=== PATIENT | male | born 1950 | race Caucasian/White ===

== ENCOUNTER 2022-02-01 05:24 | Inpatient (IN) ==
--- NOTE | 2022-02-01 06:07 | Emergency Department Note ---
Impression & Plan Sepsis, Abdominal pain, acute, right upper quadrant, Hypomagnesemia Admit to the [facility] ED Provider Note NAME: ИРИНА DUEÑAS AGE: 71 SEX: M ARRIVES VIA: Ambulance INFORMANT: Patient ED PROVIDER(S): Keshia Reid DO CHIEF COMPLAINT: Shaking and sweating PLAN: Disposition: Admit to the [facility] Condition: Stable MEDICAL DECISION MAKING: The patient presents to the emergency department with significant shaking and sweating. The patient had a recent admission to an outside hospital for sepsis after being diagnosed with gallstone pancreatitis. The patient is concerned that he may be septic again. The patient does meet SIRS criteria with an elevated heart rate and white blood cell count. The source is not yet confirmed. The patient did have urinary incontinence but urinalysis does not appear to be infected. Right upper quadrant ultrasound is pending. Chest x-ray is unremarkable. Triage Nursing notes reviewed and agree with them. Prior medical records reviewed from [facility] Vital Signs: reviewed and unremarkable Differential diagnosis: Sepsis, gallstone pancreatitis, UTI ER treatment provided: IV normal saline bolus IV Zosyn IV magnesium Diagnostics interpreted by me: ECG: sinus tachycardia at a rate of [address] segment elevation or signs of ischemia. There is no ectopy. Cardiac Monitoring: Normal sinus rhythm at a rate of 98 Laboratory studies: See below Imaging studies: As per my interpretation Chest x-ray: No acute pulmonary infiltrates or consolidation HPI: 71/M arrives for evaluation of diaphoresis and shaking. The patient developed right upper quadrant abdominal pain, diaphoresis and shaking around 230 this afternoon. He then drank a bottle of water and then had significant frequent urination. The patient was brought to the emergency department by EMS. In route to the hospital, the patient had an episode of urinary incontinence and significant diaphoresis. The abdominal pain in the right upper quadrant persists. ROS: See above HPI for pertinent positives & negatives. A total of 10 systems reviewed and were otherwise negative. PAST MEDICAL HISTORY:Gallstone pancreatitis for which she was hospitalized in November; he had a subsequent episode of sepsis for which she was hospitalized in late December PAST SURGICAL HISTORY:See Below FAMILY HISTORY:See Below SOCIAL HISTORY:The patient is visiting his camp from [place]. He denies any tobacco abuse. HOME MEDICATIONS:See list ALLERGIES:None VITALS:See Below PHYSICAL EXAMINATION: HEENT: Head - normocephalic and atraumatic. Pupils are equal, round, and reactive to light. Extraocular eye muscles are intact, and sclera are anicteric. Nose - moist nasal mucosa without discharge. Mouth - moist buccal mucosa. Oropharynx is nonerythematous and there is no tonsillar exudate or edema noted. Neck: Supple; no JVD or nuchal rigidity Heart: Regular rate and rhythm. There is a normal S1 and S2 with no murmurs, clicks, or gallops appreciated. Lungs: Clear to auscultation bilaterally with no wheezes, rales, or rhonchi. Abdomen: Soft, mild tenderness to palpation in the right upper quadrant, nondistended, with good bowel sounds. There are no palpable pulsatile masses or hepatosplenomegaly. There is no guarding, rigidity, or rebound noted. Extremities: No evidence of cyanosis, clubbing, or edema. There are easily palpable peripheral pulses. Skin: Extremely diaphoretic, pale with good turgor and no rashes. ED COURSE: Times/Reassessments: 0540: The patient was evaluated in room C4. He had a complete septic work-up performed. A twelve-lead EKG was obtained. An order was placed for continuous cardiac monitoring. The patient was in a normal sinus rhythm at a rate of 98. Patient had a chest x-ray performed. He was noted to be hypomagnesemic and was given IV magnesium replacement. The patient was given IV normal saline. A Covid swab was obtained. Because of the patient's elevated white blood cell count and my concern for sepsis, I started the patient on broad-spectrum antibiotics with IV Zosyn. We have tried on multiple occasions to obtain the records from the patient's most recent admission at [facility] in [place]. The patient will go for ultrasound of the right upper quadrant to better visualize the gallbladder. I discussed the case with Dr. Cartwright from the [facility] group. Keshia Reid DO Past Med/Surg History Medical History Acute pancreatitis Essential hypertension Gallstone pancreatitis Neuropathy Pancreatic pseudocyst Pituitary macroadenoma Prolactinoma Surgical History History of hernia repair Social History Smoking Status: Never smoker Hx Alcohol Use: No Hx Substance Use: No Preferred Language: Micronesian Beliefs That Will Affect Care: None Current Living Situation: Family Current Living Situation Comment: lives in two story house with son and grand daughter Other Information That Helps Us Care for You: No Feels Safe at Home: Yes Safety Concerns: Feels Safe At This Time Assistive Devices: Glasses Allergies Allergies Allergy/AdvReac Type Severity Reaction Status Date / Time No Known Allergies Allergy Unverified 02/01/22 09:17 Home Meds Home Medications Medication Instructions Recorded Confirmed bromocriptine 5 mg capsule 5 mg PO BID 02/01/22 02/01/22 lisinopril 5 mg tablet 5 mg PO QAM 02/01/22 02/01/22 Results & Data (ED) Vital Signs Vital Signs - 24 hr 02/01/22 08:00 02/01/22 08:30 02/01/22 09:00 Pulse Rate [Apical] 86 96 H Pulse Rhythm [Apical] Regular Regular Pulse Strength [Apical] Normal Normal Respiratory Rate 18 18 Respiratory Effort / Characteristics Non-Labored Spontaneous Non-Labored Spontaneous Non-Labored Spontaneous Respiratory Depth Normal Normal Blood Pressure [Right Arm] 99/64 L 111/69 Blood Pressure Mean [Right Arm] 75 83 Blood Pressure Position [Right Arm] Lying Lying Pulse Oximetry 94 94 Oxygen Delivery Method Nasal Cannula Nasal Cannula Oxygen Flow Rate 2 2 02/01/22 09:30 Pulse Rate [Apical] 97 H Pulse Rhythm [Apical] Regular Pulse Strength [Apical] Normal Respiratory Rate 18 Respiratory Effort / Characteristics Non-Labored Spontaneous Respiratory Depth Normal Blood Pressure [Right Arm] 100/67 Blood Pressure Mean [Right Arm] 78 Blood Pressure Position [Right Arm] Lying Pulse Oximetry 94 Oxygen Delivery Method Nasal Cannula Oxygen Flow Rate 2 Laboratory Data Result diagrams: 02/02/22 06:18 02/02/22 06:18 Lab Results 02/01/22 02/01/22 02/01/22 Range/Units 05:40 05:40 05:40 WBC 11.52 H (4.8-10.8) K/uL RBC 4.78 (4.7-6.1) M/uL Hgb 13.7 L (14.0-18.0) g/dL Hct 41.6 L (42-52) % MCV 87.0 (80-100) fL MCH 28.7 (25-34) pg MCHC 32.9 (32-36) g/dL RDW Std Deviation 43.4 (36.4-46.3) fL RDW Coeff of [place] 13.5 (11.5-14.5) % Plt Count 315 (130-400) K/uL MPV 10.9 H (7.4-10.4) fL Immature Gran % (Auto) 0.3 % Neut % (Auto) 92.4 % Lymph % (Auto) 6.0 % [place] % (Auto) 1.0 % Eos % (Auto) 0.2 % Baso % (Auto) 0.1 % Neut # (Auto) 10.65 H (1.4-6.5) K/uL Lymph # (Auto) 0.69 L (1.2-3.4) K/uL [place] # (Auto) 0.11 (0.11-0.59) K/uL Eos # (Auto) 0.02 (0-0.5) K/uL Baso # (Auto) 0.01 (0-0.2) K/uL Immature Gran # (Auto) 0.04 H (0.00-0.02) K/uL PT 12.6 H (9.0-12.0) Seconds INR 1.2 H (0.9-1.1) APTT 22.1 (21.0-31.0) Seconds PTT Ratio 0.8 Sodium 138 (136-145) mmol/L Potassium 3.9 (3.5-5.1) mmol/L Chloride 103 (98-107) mmol/L Carbon Dioxide 22 (21-32) mmol/L Anion Gap 13 H (3-11) BUN 9 (6-23) mg/dl Creatinine 0.92 (0.6-1.4) mg/dl Est Cr Clr Drug Dosing 93.5 ml/min Est GFR ( Amer) 95.3 ml/min Est GFR (Non-Af Amer) 82.2 ml/min BUN/Creatinine Ratio 9.8 L (10-20) Glucose 162 H (70-99(Fasting)) mg/dl Lactate (0.4-2.0) mmol/L Calcium 8.9 (8.5-10.1) mg/dl Magnesium 1.5 L (1.7-2.4) mg/dl Total Bilirubin 1.1 H (0.2-1.0) mg/dl AST 21 (13-39) U/L ALT 35 (7-52) U/L Alkaline Phosphatase 108 H (34-104) U/L Total Protein 6.5 (6.0-8.3) gm/dl Albumin 4.0 (3.4-5.0) gm/dl Globulin 2.5 (2.5-4.0) gm/dl Albumin/Globulin Ratio 1.6 (0.9-2) Lipase 24 (11-82) U/L Urine Color Urine Appearance (Clear) Urine pH (4.5-7.5) Ur Specific [place] (1.000-1.030) Urine Protein (Negative) Urine Glucose (UA) (Negative) Urine Ketones (Negative) Urine Blood (Negative) Urine Nitrite (Negative) Urine Bilirubin (Negative) Urine Urobilinogen (Negative) Ur Leukocyte Esterase (Negative) Urine WBC (Auto) (0-5) /hpf Urine RBC (Auto) (0-4) /hpf U Hyaline Cast (Auto) (0-5) /lpf U Epithel Cells (Auto) (0-5) /lpf Urine Bacteria (Auto) (Negative) Ur Renal Epithelial Cell Urine Mucus (None Prsent) Influ A Molecular Assay (Negative) Influ B Molecular Assay (Negative) SARS-CoV-2, RNA, NAAT (NEGATIVE) 02/01/22 02/01/22 02/01/22 Range/Units 05:56 06:00 06:03 WBC (4.8-10.8) K/uL RBC (4.7-6.1) M/uL Hgb (14.0-18.0) g/dL Hct (42-52) % MCV (80-100) fL MCH (25-34) pg MCHC (32-36) g/dL RDW Std Deviation (36.4-46.3) fL RDW Coeff of [place] (11.5-14.5) % Plt Count (130-400) K/uL MPV (7.4-10.4) fL Immature Gran % (Auto) % Neut % (Auto) % Lymph % (Auto) % [place] % (Auto) % Eos % (Auto) % Baso % (Auto) % Neut # (Auto) (1.4-6.5) K/uL Lymph # (Auto) (1.2-3.4) K/uL [place] # (Auto) (0.11-0.59) K/uL Eos # (Auto) (0-0.5) K/uL Baso # (Auto) (0-0.2) K/uL Immature Gran # (Auto) (0.00-0.02) K/uL PT (9.0-12.0) Seconds INR (0.9-1.1) APTT (21.0-31.0) Seconds PTT Ratio Sodium (136-145) mmol/L Potassium (3.5-5.1) mmol/L Chloride (98-107) mmol/L Carbon Dioxide (21-32) mmol/L Anion Gap (3-11) BUN (6-23) mg/dl Creatinine (0.6-1.4) mg/dl Est Cr Clr Drug Dosing ml/min Est GFR ( Amer) ml/min Est GFR (Non-Af Amer) ml/min BUN/Creatinine Ratio (10-20) Glucose (70-99(Fasting)) mg/dl Lactate 2.9 H* (0.4-2.0) mmol/L Calcium (8.5-10.1) mg/dl Magnesium (1.7-2.4) mg/dl Total Bilirubin (0.2-1.0) mg/dl AST (13-39) U/L ALT (7-52) U/L Alkaline Phosphatase (34-104) U/L Total Protein (6.0-8.3) gm/dl Albumin (3.4-5.0) gm/dl Globulin (2.5-4.0) gm/dl Albumin/Globulin Ratio (0.9-2) Lipase (11-82) U/L Urine Color Urine Appearance (Clear) Urine pH (4.5-7.5) Ur Specific [place] (1.000-1.030) Urine Protein (Negative) Urine Glucose (UA) (Negative) Urine Ketones (Negative) Urine Blood (Negative) Urine Nitrite (Negative) Urine Bilirubin (Negative) Urine Urobilinogen (Negative) Ur Leukocyte Esterase (Negative) Urine WBC (Auto) (0-5) /hpf Urine RBC (Auto) (0-4) /hpf U Hyaline Cast (Auto) (0-5) /lpf U Epithel Cells (Auto) (0-5) /lpf Urine Bacteria (Auto) (Negative) Ur Renal Epithelial Cell Urine Mucus (None Prsent) Influ A Molecular Assay Negative (Negative) Influ B Molecular Assay Negative (Negative) SARS-CoV-2, RNA, NAAT NEGATIVE (NEGATIVE) 02/01/22 02/01/22 Range/Units 06:15 08:15 WBC (4.8-10.8) K/uL RBC (4.7-6.1) M/uL Hgb (14.0-18.0) g/dL Hct (42-52) % MCV (80-100) fL MCH (25-34) pg MCHC (32-36) g/dL RDW Std Deviation (36.4-46.3) fL RDW Coeff of [place] (11.5-14.5) % Plt Count (130-400) K/uL MPV (7.4-10.4) fL Immature Gran % (Auto) % Neut % (Auto) % Lymph % (Auto) % [place] % (Auto) % Eos % (Auto) % Baso % (Auto) % Neut # (Auto) (1.4-6.5) K/uL Lymph # (Auto) (1.2-3.4) K/uL [place] # (Auto) (0.11-0.59) K/uL Eos # (Auto) (0-0.5) K/uL Baso # (Auto) (0-0.2) K/uL Immature Gran # (Auto) (0.00-0.02) K/uL PT (9.0-12.0) Seconds INR (0.9-1.1) APTT (21.0-31.0) Seconds PTT Ratio Sodium (136-145) mmol/L Potassium (3.5-5.1) mmol/L Chloride (98-107) mmol/L Carbon Dioxide (21-32) mmol/L Anion Gap (3-11) BUN (6-23) mg/dl Creatinine (0.6-1.4) mg/dl Est Cr Clr Drug Dosing ml/min Est GFR ( Amer) ml/min Est GFR (Non-Af Amer) ml/min BUN/Creatinine Ratio (10-20) Glucose (70-99(Fasting)) mg/dl Lactate 1.5 (0.4-2.0) mmol/L Calcium (8.5-10.1) mg/dl Magnesium (1.7-2.4) mg/dl Total Bilirubin (0.2-1.0) mg/dl AST (13-39) U/L ALT (7-52) U/L Alkaline Phosphatase (34-104) U/L Total Protein (6.0-8.3) gm/dl Albumin (3.4-5.0) gm/dl Globulin (2.5-4.0) gm/dl Albumin/Globulin Ratio (0.9-2) Lipase (11-82) U/L Urine Color Yellow Urine Appearance Clear (Clear) Urine pH 8.0 H (4.5-7.5) Ur Specific [place] 1.015 (1.000-1.030) Urine Protein 3+ H (Negative) Urine Glucose (UA) Trace H (Negative) Urine Ketones Trace H (Negative) Urine Blood Negative (Negative) Urine Nitrite Negative (Negative) Urine Bilirubin Negative (Negative) Urine Urobilinogen Negative (Negative) Ur Leukocyte Esterase Negative (Negative) Urine WBC (Auto) 5-10 H (0-5) /hpf Urine RBC (Auto) 0-4 (0-4) /hpf U Hyaline Cast (Auto) 5-10 H (0-5) /lpf U Epithel Cells (Auto) >30 H (0-5) /lpf Urine Bacteria (Auto) Negative (Negative) Ur Renal Epithelial Cell Not Reportable Urine Mucus Present A (None Prsent) Influ A Molecular Assay (Negative) Influ B Molecular Assay (Negative) SARS-CoV-2, RNA, NAAT (NEGATIVE) Administered Medications Atorvastatin Calcium (Atorvastatin 40 Mg Tab) 40 mg PO HS JAMES Stop: 03/03/22 20:59 Last Admin: 02/01/22 21:30 Dose: 40 mg Documented by: [id number] Piperacillin Sod/Tazobactam (Sod 4.5 gm/ Dextrose) 120 mls @ 30 mls/hr IV Q8H JAMES; Protocol Stop: 02/11/22 11:59 Last Admin: 02/02/22 04:20 Dose: 30 mls/hr Documented by: [id number] Infusion: 02/02/22 01:35 Dose: 0 mls/hr Documented by: [id number] Admin: 02/01/22 21:29 Dose: 30 mls/hr Documented by: [id number] Infusion: 02/01/22 16:29 Dose: 0 mls/hr Documented by: [id number] Admin: 02/01/22 12:19 Dose: 30 mls/hr Documented by: [id number] Heparin Sodium/Dextrose (Heparin Sodium/Dextrose) 25,000 units in 500 mls @ 24 mls/hr IV .[id number] [facility], [facility]; Protocol Stop: 03/03/22 15:59 Last Titration: 02/02/22 06:56 Dose: 1,200 units/hr, 24 mls/hr Documented by: [id number] Cosigned by: [id number] Titration: 02/02/22 00:09 Dose: 1,200 units/hr, 24 mls/hr Documented by: [id number] Cosigned by: [id number] Admin: 02/01/22 16:46 Dose: 1,000 units/hr, 20 mls/hr Documented by: [id number] Cosigned by: [id number] Metoprolol Tartrate (Metoprolol Tartrate 25 Mg Tab) 25 mg PO BID [facility] Stop: 03/03/22 20:59 Last Admin: 02/01/22 21:31 Dose: 25 mg Documented by: [id number] Discontinued Medications Aspirin (Aspirin 81 Mg Chew) 324 mg PO ONE STA Stop: 02/01/22 15:19 Last Admin: 02/01/22 15:23 Dose: 324 mg Documented by: [id number] Heparin Sodium (Porcine) (Heparin Sod (Porcine) 1000 Unit/Ml) 4,000 units IV NOW ONE Stop: 02/01/22 16:01 Last Admin: 02/01/22 16:45 Dose: 4,000 units Documented by: [id number] Cosigned by: [id number] Heparin Sodium (Porcine) (Heparin Sod (Porcine) 1000 Unit/Ml) 4,000 units IV NOW ONE Stop: 02/01/22 23:56 Last Admin: 02/02/22 00:06 Dose: 4,000 units Documented by: [id number] Cosigned by: [id number] Piperacillin Sod/Tazobactam Sod (Zosyn) 4.5 gm in 120 mls @ 240 mls/hr IV NOW ONE Stop: 02/01/22 07:18 Last Infusion: 02/01/22 08:12 Dose: 0 mls/hr Documented by: [id number] Admin: 02/01/22 07:05 Dose: 240 mls/hr Documented by: [id number] Sodium Chloride (Nss 1000ml) 1,000 mls @ 999 mls/hr IV .[id number] ONE Stop: 02/01/22 07:55 Last Infusion: 02/01/22 08:12 Dose: 0 mls/hr Documented by: [id number] Admin: 02/01/22 07:05 Dose: 999 mls/hr Documented by: [id number] Magnesium Sulfate/Dextrose (Magnesium Sulfate / D5w) 1 gm in 100 mls @ 100 mls/hr IV NOW STA Stop: 02/01/22 08:11 Last Infusion: 02/01/22 08:12 Dose: 0 mls/hr Documented by: [id number] Admin: 02/01/22 07:26 Dose: 100 mls/hr Documented by: [id number] Magnesium Sulfate/Dextrose (Magnesium Sulfate / D5w) 1 gm in 100 mls @ 50 mls/hr IV ONE ONE Stop: 02/01/22 17:44 Last Infusion: 02/01/22 18:19 Dose: 0 mls/hr Documented by: [id number] Admin: 02/01/22 16:12 Dose: 50 mls/hr Documented by: [id number] Imaging Data Radiologist's Impression: Chest X-Ray 02/01/22 05:53 XR chest 1V portable CLINICAL HISTORY: Sepsis. COMPARISON STUDY: No previous studies for comparison. FINDINGS: Lung volumes are normal. No pneumothorax or pleural effusion. Linear left basilar opacities favor atelectasis. There is mild cardiomegaly. No definite consolidation. No evidence for pulmonary edema. IMPRESSION: 1. Mild left basilar opacity which favors atelectasis. 2. No evidence for pulmonary edema. ACT 112: Negative or not required by law. Electronically signed by: Oz Augustine M.D. 02/01/2022 7:57 AM Discharge Plan Visit Data Chief Complaint: Abdominal Pain Stated Complaint: ABDOMINAL PAIN,FREQUENT URINATION,TREMORS ED Provider: Keshia Reid Discharge Problem: Sepsis, Abdominal pain, acute, right upper quadrant, Hypomagnesemia Patient Disposition: Admitted As Inpatient Discharge Instructions Interventions: ED Discharge Assessment Last Done: 02/01/22 10:30
[2022-02-01 06:17] LABS: Basophils # (auto) 0.01 K/uL (0-0.2); Basophils % (auto) 0.1 %; Eosinophils # (auto) 0.02 K/uL (0-0.5); Eosinophils % (auto) 0.2 %; Hematocrit (blood only) 41.6 % (42-52); Hemoglobin 13.7 g/dL (14.0-18.0); Immature Granulocytes # (auto) 0.04 K/uL (0.00-0.02); Immature Granulocytes % (auto) 0.3 %; Lymphocytes # (auto) 0.69 K/uL (1.2-3.4); Mean Corpuscular Hemoglobin 28.7 pg (25-34); Mean Corpuscular Hgb Conc 32.9 g/dL (32-36); Mean Platelet Volume 10.9 fL (7.4-10.4); Monocytes # (auto) 0.11 K/uL (0.11-0.59); Neutrophils # (auto) 10.65 K/uL (1.4-6.5); Neutrophils % (auto) 92.4 %; Platelet Count 315 K/uL (130-400); RDW Coefficient of Variation 13.5 % (11.5-14.5); RDW Standard Deviation 43.4 fL (36.4-46.3); Red Blood Count 4.78 M/uL (4.7-6.1); White Blood Count 11.52 K/uL (4.8-10.8)
[2022-02-01 06:33] LABS: INR 1.2 (0.9-1.1); Partial Thromboplastin Ratio 0.8; Partial Thromboplastin Time 22.1 Seconds (21.0-31.0); Prothrombin Time 12.6 Seconds (9.0-12.0)
[2022-02-01 06:45] LABS: Albumin Globulin Ratio 1.6 (0.9-2); BUN Creatinine Ratio 9.8 (10-20); Bilirubin,Total 1.1 mg/dl (0.2-1.0); Calcium 8.9 mg/dl (8.5-10.1); Creatinine Clr Calc Pharmacy 93.5 ml/min; Est GFR (African American) 95.3 ml/min; Est GFR (Non-African American) 82.2 ml/min; Globulin 2.5 gm/dl (2.5-4.0); Magnesium 1.5 mg/dl (1.7-2.4); Potassium 3.9 mmol/L (3.5-5.1); Total Protein 6.5 gm/dl (6.0-8.3)
[2022-02-01 06:46] LABS: Appearance Urine Clear (Clear); Bacteria Urine Automated Negative (Negative); Bilirubin Urine Negative (Negative); Blood Urine Negative (Negative); Color Urine Yellow; Epithelial Cell Urine Auto >30 /lpf (0-5); Glucose Urine UA Trace (Negative); Ketones Urine Trace (Negative); Leukocyte Esterase Urine Negative (Negative); Nitrite Urine Negative (Negative); RBC Urine Automated 0-4 /hpf (0-4); Specific Gravity Urine 1.015 (1.000-1.030); Urobilinogen Urine Negative (Negative)
[2022-02-01] MEDS ORDERED: PIPERACILL/TAZOBAC CONSULT ACTIVE PRN (06:49)
[2022-02-01] MEDS ORDERED: PIPERACILLIN/TAZOBACTAM 4.5 GM/120 ML BAG IV ONE (06:49)
[2022-02-01 06:55] LABS: Protein Urine 3+ (Negative)
[2022-02-01] MEDS ORDERED: SODIUM CHLORIDE 0.9% 1000ML 1,000 ML IV ONE (06:55)
[2022-02-01 07:04] LABS: Mucus Urine Present (None Prsent)
[2022-02-01] MEDS ORDERED: MAGNESIUM SULFATE / D5W 1 GM/100 ML BAG IV STA (07:12)
--- NOTE | 2022-02-01 07:58 | XRay Report ---
XR chest 1V portable CLINICAL HISTORY: Sepsis. COMPARISON STUDY: No previous studies for comparison. FINDINGS: Lung volumes are normal. No pneumothorax or pleural effusion. Linear left basilar opacities favor atelectasis. There is mild cardiomegaly. No definite consolidation. No evidence for pulmonary edema. IMPRESSION: 1. Mild left basilar opacity which favors atelectasis. 2. No evidence for pulmonary edema. ACT 112: Negative or not required by law. Electronically signed by: Oz Augustine M.D. 02/01/2022 7:57 AM
--- NOTE | 2022-02-01 08:43 | History & Physical Report ---
Date of Service February 01, 2022 Assessment & Plan (1) Sepsis: Plan: SIRS criteria met - elevated HR and WBC RUQ pain on exam - suspect infection of cholecystitis vs. pancreatic pseudocyst vs. cholangitis Zosyn pending blood culture results Consult gastroenterology - discussed with Dr Brown and MRCP deferred at this time Consult surgery (2) Essential hypertension: Plan: Hold lisinopril given hypotensive of arrival (3) Pancreatic pseudocyst: Plan: Appears to be stable based on comparison of reports from prior imaging. Plan: VTE Prophylaxis - Lovenox 40mg SQ daily Diet - clear liquids Disposition - admit to med/tele Admission and Anticipated Discharge Date Admission Date: February 01, 2022 History of Present Illness Chief Complaint: Abdominal pain Primary Care Provider: Nate Cárdenas is a 71 year old male with significant history of gallstone pancreatitis, cholangitis, cholecystitis s/p ERCP with biliary stent x2 who presents to the ER with fever, chills. He reportedly also had recurrent right upper quadrant abdominal pain after eating an [employer] fish sandwich yesterday. No abdominal pain today, nausea, vomiting, change in bowel movements, melena or bright red blood in stool. Given his recent history and shaking this morning he called for an ambulance to bring him to the ER. History obtained from patient and notes obtained from [facility]: He has a complex recent medical history with biliary pancreatitis diagnosed in November with severe pain where he underwent ERCP (11/24/21) with stone extraction and biliary stent placement at [facility]. He reports also catching COVID-19 during that admission causing fever and shortness of breath. He returned to hospital with fever, chills and abdominal pain on January 07. He was diagnosed with cholecystitis, cholangitis, pancreatic pseudocyst and Enterobacter sepsis. Biliary stent had to be replaced with bare metal stent and choledocholithiasis seen on ERCP. Blood cultures grew Enterobacter and he was treated with intravenous ertapenem and discharged on January 10 with a PICC line in place. He completed ertapenem on 01/21/22. He was hospitalized again for left upper quadrant pain from January 23-2021 however was just observed with pain felt to be secondary to compression from pancreatic pseudocyst (see initially on CT in December). CT A/P with IV contrast on January 23 showed biliary stent in place, large multiloculated cystic lesion 10 x 8.9 x 9cm (improving from prior scan on Jan 07 16 x 8.1 x 8.8cm). Conservative management was recommend due to incomplete maturation of the pseudocyst wall and therefore unable to place axios stent safely. Plan was to repeat CT in mid to late February to evaluate pseudocyst size and if stable or increased schedule for EUS for cystgastrostomy. Planned for repeat ERCP in mid to late March for stent removal. In the ER here he had right upper quadrant pain on exam, chills and diaphoresis. Due to elevated WBC and increased heart rate he was treated for sepsis with 1L NSS bolus and Zosyn. Lactate 2.9, resolved to 1.5 after IV fluids given. Subsequent right upper quadrant ultrasound showed no biliary ductal dilatation, cholelithiasis and gallbladder wall thickening. He was referred to medicine for admission and ongoing management of sepsis. Allergies Allergy/AdvReac Type Severity Reaction Status Date / Time No Known Allergies Allergy Unverified 02/01/22 09:17 Home Medications Medication Instructions Recorded Confirmed Type bromocriptine 5 mg capsule 5 mg PO BID 02/01/22 02/01/22 History lisinopril 5 mg tablet 5 mg PO QAM 02/01/22 02/01/22 History Past Med/Surg History Medical History (Updated 02/01/22 @ 13:23 by Jeremiah Cartwright MD) Acute pancreatitis Essential hypertension Gallstone pancreatitis Neuropathy Pancreatic pseudocyst Pituitary macroadenoma Prolactinoma Surgical History (Updated 02/01/22 @ 12:45 by Jeremiah Cartwright MD) History of hernia repair Social History Smoking Status: Never smoker Hx Alcohol Use: No Hx Substance Use: No Preferred Language: Hungarian Beliefs That Will Affect Care: None Current Living Situation: Family Current Living Situation Comment: lives in two story house with son and grand daughter Other Information That Helps Us Care for You: No Feels Safe at Home: Yes Safety Concerns: Feels Safe At This Time Assistive Devices: Glasses Review of Systems Review of Systems: All systems reviewed & are unremarkable except as noted in HPI & below Physical Exam Constitutional: WD/WN, vitals as above Eyes: + anicteric sclerae; normal pupil size Respiratory: normal respiratory effort, lungs clear to auscultation Cardiovascular: RRR, no murmur, no edema Gastrointestinal (Abdomen): Inspection/Auscultation: normal bowel sounds Percussion/Palpation: + abdomen tender (mild RUQ pain on inspiration) and abdomen soft; no guarding and abdomen not rigid Musculoskeletal: no cyanosis or clubbing, extremities motor strength 5/5 Skin: no rashes, warm and dry Neurologic: moves all extremities and awake; not confused Psychiatric: A+Ox3, euthymic affect Genitourinary: no CVA tenderness Results & Data Results & Data ([facility] [place]) Vital Signs (Past 12 Hours) Vital Signs Temp Pulse Pulse Resp BP BP Pulse Ox 02/01/22 07:00 92 H 18 114/75 94 02/01/22 06:30 97 H 22 120/75 93 02/01/22 06:00 95 02/01/22 05:59 98 H 26 H 111/70 93 02/01/22 05:35 37.4 C 107 H 22 105/60 89 L Laboratory Results Abnormal lab results 02/01/22 02/01/22 02/01/22 Range/Units 05:40 05:40 05:40 WBC 11.52 H (4.8-10.8) K/uL Hgb 13.7 L (14.0-18.0) g/dL Hct 41.6 L (42-52) % MPV 10.9 H (7.4-10.4) fL Neut # (Auto) 10.65 H (1.4-6.5) K/uL Lymph # (Auto) 0.69 L (1.2-3.4) K/uL Immature Gran # (Auto) 0.04 H (0.00-0.02) K/uL PT 12.6 H (9.0-12.0) Seconds INR 1.2 H (0.9-1.1) Anion Gap 13 H (3-11) BUN/Creatinine Ratio 9.8 L (10-20) Glucose 162 H (70-99(Fasting)) mg/dl Lactate (0.4-2.0) mmol/L Magnesium 1.5 L (1.7-2.4) mg/dl Total Bilirubin 1.1 H (0.2-1.0) mg/dl Alkaline Phosphatase 108 H (34-104) U/L Urine pH (4.5-7.5) Urine Protein (Negative) Urine Glucose (UA) (Negative) Urine Ketones (Negative) Urine WBC (Auto) (0-5) /hpf U Hyaline Cast (Auto) (0-5) /lpf U Epithel Cells (Auto) (0-5) /lpf Urine Mucus (None Prsent) 02/01/22 02/01/22 Range/Units 06:00 06:15 WBC (4.8-10.8) K/uL Hgb (14.0-18.0) g/dL Hct (42-52) % MPV (7.4-10.4) fL Neut # (Auto) (1.4-6.5) K/uL Lymph # (Auto) (1.2-3.4) K/uL Immature Gran # (Auto) (0.00-0.02) K/uL PT (9.0-12.0) Seconds INR (0.9-1.1) Anion Gap (3-11) BUN/Creatinine Ratio (10-20) Glucose (70-99(Fasting)) mg/dl Lactate 2.9 H* (0.4-2.0) mmol/L Magnesium (1.7-2.4) mg/dl Total Bilirubin (0.2-1.0) mg/dl Alkaline Phosphatase (34-104) U/L Urine pH 8.0 H (4.5-7.5) Urine Protein 3+ H (Negative) Urine Glucose (UA) Trace H (Negative) Urine Ketones Trace H (Negative) Urine WBC (Auto) 5-10 H (0-5) /hpf U Hyaline Cast (Auto) 5-10 H (0-5) /lpf U Epithel Cells (Auto) >30 H (0-5) /lpf Urine Mucus Present A (None Prsent) Diagnostic Findings XR chest 1V portable CLINICAL HISTORY: Sepsis. COMPARISON STUDY: No previous studies for comparison. FINDINGS: Lung volumes are normal. No pneumothorax or pleural effusion. Linear left basilar opacities favor atelectasis. There is mild cardiomegaly. No definite consolidation. No evidence for pulmonary edema. IMPRESSION: 1. Mild left basilar opacity which favors atelectasis. 2. No evidence for pulmonary edema. Medications Administered ER Medications Given: Zosyn 4.5g IV Mg sulphate 1g IV NSS 1L bolus ECG Indication: abdominal pain Rate (beats per minute): 105 Rhythm: sinus tachycardia Findings: no acute ischemic change Comparison ECG Date: no prior available Code Status & VTE Plan Code Status Full VTE Prophylaxis Plan VTE Prophylaxis will be ordered: Yes PG Care Time/CCT Total # of Minutes Spent Total Time Spent with Patient: Total time spent is greater than 50% in coordination of care (as documented) at patient's floor/unit and/or counseling patient: Coding Level of Care Code 79793 Initial Inpt Care Lvl 3 Diagnoses Essential hypertension I10 Pancreatic pseudocyst K86.3 Sepsis A41.9
--- NOTE | 2022-02-01 09:18 | Ultrasound Report ---
US gallbladder CLINICAL HISTORY: Upper abdominal pain. History of pancreatitis. Evaluate gallbladder. COMPARISON STUDY: No previous studies for comparison. FINDINGS: Liver is sonographically normal. There is no biliary ductal dilatation. Common bile duct me asures 4 mm in caliber. There are multiple gallstones within the gallbladder. The gallbladder wall is moderately thickened, measuring 5 mm in thickness. Gallbladder wall is edematous. No sonographic Mur phy sign was elicited. Pancreas is largely obscured on this exam. Note is made of a complex fluid col lection either adjacent to or within the pancreatic head and body which measures 8.3 x 6.8 x 5.3 cm. This contains echogenic material without color flow. The wall is thickened. No additional fluid colle ctions are present. IMPRESSION: 1. Cholelithiasis and gallbladder wall thickening. Although within the differential, the findings are not strongly suggestive of acute cholecystitis given lack of sonographic Cloud sign. 2. No biliary ductal dilatation. 3. 8.3 x 6.8 x 5.3 cm complex fluid collection either adjacent to or within the pancreatic head and b ephraim which contains echogenic material and a thickened wall. While nonspecific, this likely reflects a pancreatic pseudocyst. Correlation with prior cross-sectional imaging, if available, is recommended. ACT 112: Negative or not required by law. Electronically signed by: Oz Augustine M.D. 02/01/2022 9:15 AM
[2022-02-01 09:47] LABS: Influenza A virus by PCR Negative (Negative); Influenza B virus by PCR Negative (Negative)
--- NOTE | 2022-02-01 10:43 | Electrocardiogram Report ---
Test Reason : Blood Pressure : / mmHG Vent. Rate : 105 BPM Atrial Rate : 105 BPM P-R Int : 142 ms QRS Dur : 082 ms QT Int : 392 ms P-R-T Axes : 019 -11 010 degrees QTc Int : 518 ms Sinus tachycardia Abnormal ECG No previous ECGs available Confirmed by Elliot Lima ([id number]) on 02/01/2022 10:42:45 AM Referred By: REFERRED SELF Confirmed By:Evelio Lima
[2022-02-01] MEDS: PIPERACILLIN/TAZOBACTAM 4.5 GM in DEXTROSE 5% 100 ML IV SCH ×2 (12:19→21:29)
--- NOTE | 2022-02-01 13:44 | Gastrointestinal Consultation ---
Date of Consultation February 01, 2022 Assessment & Plan (1) Pancreatic pseudocyst: (2) Sepsis: concern for acute biliary source of infection, currently without pain. recs: --agree with abx for biliary source --obtain blood cultures --supportive care --diet as tolerated --if worsens clinically, consider CT pancreas protocol or MRI pancreas protocol --needs CCY given his recent gallstone pancreatitis episode Thank you for allowing me to participate in the care of this patient History of Present Illness Attending Physician: Jeremiah Cartwright MD History of Present Illness 71 yo male with hx gallstone pancreatitis, cholangitis s/p ERCP with biliary stent x 2 here with fevers, chills. Also had RUQ pains but this has resolved. Notes some vomiting x 1 today. He has a complex hx including gallstone pancreatitis with large pseudocyst formation, [facility] pseudocyst on imaging today is smaller than it previously was (originally 16 x 8 x8 cm). US abdomen today without obstruction, gallstones are noted. CBC and CMP reviewed. Allergies Allergy/AdvReac Type Severity Reaction Status Date / Time No Known Allergies Allergy Unverified 02/01/22 09:17 Home Medications Medication Instructions Recorded Confirmed Type bromocriptine 5 mg capsule 5 mg PO BID 02/01/22 02/01/22 History lisinopril 5 mg tablet 5 mg PO QAM 02/01/22 02/01/22 History Patient History Medical History Acute pancreatitis Essential hypertension Gallstone pancreatitis Neuropathy Pancreatic pseudocyst Pituitary macroadenoma Prolactinoma Surgical History History of hernia repair Social History Smoking Status: Never smoker Hx Alcohol Use: No Hx Substance Use: No Preferred Language: Polish Beliefs That Will Affect Care: None Current Living Situation: Family Current Living Situation Comment: lives in two story house with son and grand daughter Other Information That Helps Us Care for You: No Feels Safe at Home: Yes Safety Concerns: Feels Safe At This Time Assistive Devices: Glasses Review of Systems Constitutional: no fever, no chills and no weight loss Eyes: as per Subjective / HPI Ear, Nose, Mouth, Throat: as per Subjective / HPI Respiratory: no dyspnea and no dyspnea on exertion Cardiovascular: no chest pain and no palpitations Gastrointestinal: as per Subjective / HPI Musculoskeletal: no joint pain and no swelling Integumentary: no rash and no lesions Neurologic: no numbness and no paresthesia Psychiatric: no depression and no anxiety Endocrine: no fatigue Hematologic / Lymphatic: no easy bleeding and no easy bruising Physical Exam Constitutional: WD/WN, vitals as above Eyes: EOM intact bilaterally Neck: normal visual inspection Respiratory: normal respiratory effort, lungs clear to auscultation Cardiovascular: RRR, no murmur, no edema Gastrointestinal (Abdomen): Inspection/Auscultation: abdomen normal to inspection; abdomen not distended Percussion/Palpation: abdomen soft; abdomen nontender and no hepatosplenomegaly Musculoskeletal: Extremities: no cyanosis Gait: normal gait Skin: no rashes, warm and dry Neurologic: moves all extremities Psychiatric: A+Ox3, euthymic affect Results & Data ([facility]) Vital Signs (Past 12 Hours) Vital Signs Temp Pulse Pulse Pulse Resp BP BP 02/01/22 11:35 78 02/01/22 11:21 36.5 C 74 18 105/64 02/01/22 10:30 20 114/71 02/01/22 10:15 75 20 114/71 02/01/22 10:00 78 18 114/71 02/01/22 09:30 97 H 18 100/67 02/01/22 08:30 96 H 18 111/69 02/01/22 08:00 86 18 99/64 L 02/01/22 07:00 92 H 18 114/75 02/01/22 06:30 97 H 22 120/75 02/01/22 06:00 02/01/22 05:59 98 H 26 H 111/70 02/01/22 05:35 37.4 C 107 H 22 105/60 Pulse Ox 02/01/22 11:35 02/01/22 11:21 95 02/01/22 10:30 96 02/01/22 10:15 96 02/01/22 10:00 96 02/01/22 09:30 94 02/01/22 08:30 94 02/01/22 08:00 94 02/01/22 07:00 94 02/01/22 06:30 93 02/01/22 06:00 95 02/01/22 05:59 93 02/01/22 05:35 89 L PG Care Time/CCT Total # of Minutes Spent Total Time Spent with Patient: Total time spent is greater than 50% in coordination of care (as documented) at patient's floor/unit and/or counseling patient: Coding Level of Care Code 94815 Initial Inpt Care Lvl 3 Diagnoses Pancreatic pseudocyst K86.3 Sepsis A41.9
[2022-02-01] MEDS ORDERED: ASPIRIN 81 MG CHEW PO STA (15:18)
[2022-02-01] MEDS ORDERED: Heparin IV Adult Wt-Based Low-Dose WITH Bolus Protocol IV SCH ×2 (15:19→15:46)
[2022-02-01] MEDS ORDERED: HEPARIN SOD (PORCINE) 1000 UNIT/ML IV ONE ×3 (15:33→23:55)
[2022-02-01] MEDS ORDERED: HEPARIN SODIUM/DEXTROSE 25,000 UNITS/500 ML BAG IV SCH (15:45)
[2022-02-01] MEDS ORDERED: MAGNESIUM SULFATE / D5W 1 GM/100 ML BAG IV ONE (15:45)
[2022-02-01] MEDS: HEPARIN SODIUM/DEXTROSE 25,000 UNITS/500 ML BAG IV SCH (16:46)
--- NOTE | 2022-02-01 16:51 | XCELERA ---
[id number]
--- NOTE | 2022-02-01 17:57 | Surgery Consultation ---
Date of Consultation February 01, 2022 Assessment & Plan (1) Sepsis: 71-year-old man with gallstones and likely acute cholecystitis. Given that the pseudocyst is decreasing in size, this is not likely the source of his symptoms. We discussed that he would benefit from gallbladder removal. We discussed laparoscopic cholecystectomy with risks of bleeding infection conversion to open postoperative diarrhea intolerance to foods postoperatively. Potential for retained common bile duct stone or bile leak and use of a drain was also discussed. 1 to 2-week hospital course in the event of a laparoscopic case versus 4 to 6-week recovery with an open procedure discussed. Potential of injury to the common bile duct reviewed. He is interested in having his gallbladder removed to prevent these episodes from recurring. He has been added onto the operating room schedule for tomorrow. Consent was signed. History of Present Illness Reason for Consultation: abdominal pain Requesting Physician: Jeremiah Cartwright MD Attending Physician: Jeremiah Cartwright MD History of Present Illness 71-year-old man with complicated medical history notable for gallstone pancreatitis with pseudocyst, status post ERCP and stent placement x2. He was initially hospitalized for gallstone pancreatitis. He developed a large pseudocyst. This was being followed with plans for elective laparoscopic cholecystectomy. In December, he was scheduled for his gallbladder removal. However about a week prior to this he developed shaking chills, rigors and was found to be septic. He was admitted and treated with antibiotics. Yesterday he developed the similar symptoms. Around 3:57 in the morning he started with the shaking chills. He developed epigastric pain yesterday after dinner. He was thus came to the emergency room for evaluation. In the emergency room he was admitted and given IV fluids. His lactate trended back to normal with the admission of IV fluids. His shaking chills have resolved. He is on also on antibiotics. He has not had any prior abdominal operations. He has noted some early satiety since the development of the pseudocyst. Imaging shows that the pseudocyst is slowly decreasing in size. Plan is for cyst gastrostomy in late February assuming the cyst is matured at that point in time and is still present. Allergies Allergy/AdvReac Type Severity Reaction Status Date / Time No Known Allergies Allergy Unverified 02/01/22 09:17 Home Medications Medication Instructions Recorded Confirmed Type bromocriptine 5 mg capsule 5 mg PO BID 02/01/22 02/01/22 History lisinopril 5 mg tablet 5 mg PO QAM 02/01/22 02/01/22 History Patient History Medical History Acute pancreatitis Essential hypertension Gallstone pancreatitis Neuropathy Pancreatic pseudocyst Pituitary macroadenoma Prolactinoma Surgical History History of hernia repair Social History Smoking Status: Never smoker Hx Alcohol Use: No Hx Substance Use: No Preferred Language: Citizen Of [place] Beliefs That Will Affect Care: None Current Living Situation: Family Current Living Situation Comment: lives in two story house with son and grand daughter Other Information That Helps Us Care for You: No Feels Safe at Home: Yes Safety Concerns: Feels Safe At This Time Assistive Devices: Glasses Review of Systems Review of Systems: All systems reviewed & are unremarkable except as noted in HPI & below Physical Exam Constitutional: WD/WN, vitals as above Eyes: PERRL, conjunctivae normal, anicteric sclerae ENMT: external ear and nose normal, oropharynx normal Neck: normal visual inspection and trachea midline Respiratory: normal respiratory effort, lungs clear to auscultation Cardiovascular: RRR, no murmur, no edema Gastrointestinal (Abdomen): normal bowel sounds, soft, nontender, no hepatosplenomegaly Musculoskeletal: Extremities: extremities normal to inspection Neurologic: awake; no focal motor deficits Psychiatric: A+Ox3, euthymic affect Results & Data ([facility]) Vital Signs (Past 12 Hours) Vital Signs Temp Pulse Pulse Pulse Resp BP BP 02/01/22 15:49 68 02/01/22 14:57 37.1 C 66 20 111/69 02/01/22 11:35 78 02/01/22 11:21 36.5 C 74 18 105/64 02/01/22 10:30 20 114/71 02/01/22 10:15 75 20 114/71 02/01/22 10:00 78 18 114/71 02/01/22 09:30 97 H 18 100/67 02/01/22 08:30 96 H 18 111/69 02/01/22 08:00 86 18 99/64 L 02/01/22 07:00 92 H 18 114/75 02/01/22 06:30 97 H 22 120/75 02/01/22 06:00 02/01/22 05:59 98 H 26 H 111/70 Pulse Ox 02/01/22 15:49 02/01/22 14:57 92 02/01/22 11:35 02/01/22 11:21 95 02/01/22 10:30 96 02/01/22 10:15 96 02/01/22 10:00 96 02/01/22 09:30 94 02/01/22 08:30 94 02/01/22 08:00 94 02/01/22 07:00 94 02/01/22 06:30 93 02/01/22 06:00 95 02/01/22 05:59 93 Laboratory Results Abnormal lab results 02/01/22 02/01/22 02/01/22 Range/Units 05:40 05:40 05:40 WBC 11.52 H (4.8-10.8) K/uL Hgb 13.7 L (14.0-18.0) g/dL Hct 41.6 L (42-52) % MPV 10.9 H (7.4-10.4) fL Neut # (Auto) 10.65 H (1.4-6.5) K/uL Lymph # (Auto) 0.69 L (1.2-3.4) K/uL Immature Gran # (Auto) 0.04 H (0.00-0.02) K/uL PT 12.6 H (9.0-12.0) Seconds INR 1.2 H (0.9-1.1) Anion Gap 13 H (3-11) BUN/Creatinine Ratio 9.8 L (10-20) Glucose 162 H (70-99(Fasting)) mg/dl Lactate (0.4-2.0) mmol/L Magnesium 1.5 L (1.7-2.4) mg/dl Total Bilirubin 1.1 H (0.2-1.0) mg/dl Alkaline Phosphatase 108 H (34-104) U/L Troponin I (0-0.04) ng/ml Urine pH (4.5-7.5) Urine Protein (Negative) Urine Glucose (UA) (Negative) Urine Ketones (Negative) Urine WBC (Auto) (0-5) /hpf U Hyaline Cast (Auto) (0-5) /lpf U Epithel Cells (Auto) (0-5) /lpf Urine Mucus (None Prsent) 02/01/22 02/01/22 02/01/22 Range/Units 06:00 06:15 14:24 WBC (4.8-10.8) K/uL Hgb (14.0-18.0) g/dL Hct (42-52) % MPV (7.4-10.4) fL Neut # (Auto) (1.4-6.5) K/uL Lymph # (Auto) (1.2-3.4) K/uL Immature Gran # (Auto) (0.00-0.02) K/uL PT (9.0-12.0) Seconds INR (0.9-1.1) Anion Gap (3-11) BUN/Creatinine Ratio (10-20) Glucose (70-99(Fasting)) mg/dl Lactate 2.9 H* (0.4-2.0) mmol/L Magnesium (1.7-2.4) mg/dl Total Bilirubin (0.2-1.0) mg/dl Alkaline Phosphatase (34-104) U/L Troponin I 1.77 H* (0-0.04) ng/ml Urine pH 8.0 H (4.5-7.5) Urine Protein 3+ H (Negative) Urine Glucose (UA) Trace H (Negative) Urine Ketones Trace H (Negative) Urine WBC (Auto) 5-10 H (0-5) /hpf U Hyaline Cast (Auto) 5-10 H (0-5) /lpf U Epithel Cells (Auto) >30 H (0-5) /lpf Urine Mucus Present A (None Prsent) Diagnostic Findings US gallbladder CLINICAL HISTORY: Upper abdominal pain. History of pancreatitis. Evaluate gallbladder. COMPARISON STUDY: No previous studies for comparison. FINDINGS: Liver is sonographically normal. There is no biliary ductal dilatation. Common bile duct measures 4 mm in caliber. There are multiple gallst ones within the gallbladder. The gallbladder wall is moderately thickened, measuring 5 mm in thickness. Gallbladder wall is edematous. No sonographic Cloud sign was elicited. Pancreas is largely obscured on this exam. Note is made of a complex fluid collection either adjacent to or within the pancreatic head and body which measures 8.3 x 6.8 x 5.3 cm. This contains echogenic material without color flow. The wall is thickened. No additional fluid collections are present. IMPRESSION: 1. Cholelithiasis and gallbladder wall thickening. Although within the differential, the findings are not strongly suggestive of acute cholecystitis given lack of sonographic Colud sign. 2. No biliary ductal dilatation. 3. 8.3 x 6.8 x 5.3 cm complex fluid collection either adjacent to or within the pancreatic head and body which contains echogenic material and a thickened wall. While nonspecific, this likely reflects a pancreatic pseudocyst. Correlation with prior cross-sectional imaging, if available, is recommended.
[2022-02-01 20:22] LABS: Partial Thromboplastin Ratio 1.3; Partial Thromboplastin Time 34.7 Seconds (21.0-31.0)
[2022-02-01] MEDS ORDERED: ENOXAPARIN INJ 40 MG/0.4 ML SYR SQ SCH (21:00)
[2022-02-01] MEDS: ATORVASTATIN 40 MG TAB PO SCH (21:30)
[2022-02-01] MEDS: METOPROLOL TARTRATE 25 MG TAB PO SCH (21:31)
[2022-02-01 22:49] LABS: Partial Thromboplastin Ratio 1.2; Partial Thromboplastin Time 33.6 Seconds (21.0-31.0)
[2022-02-02] MEDS: PIPERACILLIN/TAZOBACTAM 4.5 GM in DEXTROSE 5% 100 ML IV SCH ×3 (04:20→20:57)
[2022-02-02 06:38] LABS: Basophils # (auto) 0.03 K/uL (0-0.2); Basophils % (auto) 0.2 %; Eosinophils # (auto) 0.32 K/uL (0-0.5); Eosinophils % (auto) 2.5 %; Hematocrit (blood only) 37.8 % (42-52); Hemoglobin 12.3 g/dL (14.0-18.0); Immature Granulocytes # (auto) 0.03 K/uL (0.00-0.02); Immature Granulocytes % (auto) 0.2 %; Lymphocytes # (auto) 1.46 K/uL (1.2-3.4); Lymphocytes % (auto) 11.5 %; Mean Corpuscular Hemoglobin 28.5 pg (25-34); Mean Corpuscular Hgb Conc 32.5 g/dL (32-36); Mean Corpuscular Volume 87.5 fL (80-100); Mean Platelet Volume 10.6 fL (7.4-10.4); Monocytes # (auto) 1.32 K/uL (0.11-0.59); Monocytes % (auto) 10.4 %; Neutrophils # (auto) 9.52 K/uL (1.4-6.5); Neutrophils % (auto) 75.2 %; Platelet Count 262 K/uL (130-400); RDW Coefficient of Variation 13.9 % (11.5-14.5); RDW Standard Deviation 44.6 fL (36.4-46.3); Red Blood Count 4.32 M/uL (4.7-6.1); White Blood Count 12.68 K/uL (4.8-10.8)
[2022-02-02 06:59] LABS: Albumin Globulin Ratio 1.4 (0.9-2); Albumin Level 3.3 gm/dl (3.4-5.0); BUN Creatinine Ratio 17.2 (10-20); Calcium 8.1 mg/dl (8.5-10.1); Chol HDL Ratio 2.2 (0-5); Creatinine Clr Calc Pharmacy 97.2 ml/min; Est GFR (African American) 99.2 ml/min; Est GFR (Non-African American) 85.6 ml/min; Globulin 2.4 gm/dl (2.5-4.0); Potassium 3.7 mmol/L (3.5-5.1); Total Protein 5.7 gm/dl (6.0-8.3)
[2022-02-02 07:35] LABS: Partial Thromboplastin Ratio 1.4; Partial Thromboplastin Time 37.5 Seconds (21.0-31.0)
[2022-02-02] MEDS ORDERED: HEPARIN SOD (PORCINE) 1000 UNIT/ML IV ONE ×2 (08:02→23:00)
[2022-02-02] MEDS ORDERED: HEPARIN IV BOLUS 4,000 UNITS in SYRINGE 0 ML IV ONE (08:15)
[2022-02-02] MEDS: ASPIRIN 81 MG ECTAB PO SCH (08:37)
[2022-02-02] MEDS: METOPROLOL TARTRATE 25 MG TAB PO SCH ×2 (09:34→20:58)
--- NOTE | 2022-02-02 09:53 | Cardiology Consultation ---
Date of Consultation February 02, 2022 Assessment & Plan (1) Elevated troponin: (2) Cardiomyopathy: (3) Aortic insufficiency: (4) Essential hypertension: 1. Elevated troponin: Relatively flat trajectory of his cardiac biomarkers. While they are elevated, I think it is unlikely that yesterday symptoms represented an acute coronary syndrome. It is possible that he elevation related to his illness recently. We do not have prior biomarkers with which to compare. Does have some mildly reduced LV systolic function. Unfortunately, I think or in an unusual situation where he will likely need some surgical intervention in the next few weeks to have his gallbladder removed. There now is some question regarding coronary disease in the possibility of a recent acute coronary syndrome. As such, I think the most definitive way to evaluate these abnormalities was with coronary angiography. He appears to have had this done previously and was not noted to have significant disease by report. I described the procedure in the attendant risks. He is agreeable will plan on proceeding tomorrow. In the absence of unstable coronary process, he can certainly undergo the proposed surgical procedure whenever necessary. 2. Cardiomyopathy: He appeared to have some mildly reduced LV systolic function on his echocardiogram. Unclear etiology. Possibly due to his recent illness. Possibly coronary disease, although this would be employment program representative of severe normal size vessel coronary stenosis. He does not manifest other symptoms consistent with that diagnosis. However, we are planning on coronary angiography in any regard. He is not symptomatic. He is on lisinopril as an outpatient. We can continue the metoprolol started during this hospitalization at the time of discharge. Metoprolol tartrate can be changed to succinate. 3. Aortic insufficiency: Mild. This can be followed over time. History of Present Illness Reason for Consultation: Elevated troponin Requesting Physician: Gabbie Attending Physician: Jeremiah Cartwright MD History of Present Illness The patient is a 71-year-old gentleman without a known history of cardiac disease who has been struggling with pancreatitis, cholelithiasis, pancreatic pseudocyst and sepsis over the past few months. He woke yesterday morning with shakes. He had these shakes previously and was found to be septic presumably from his gastrointestinal problems. He recognized the symptoms and called EMS. At that time he did not report feeling feverish. He did not appear to have other symptoms. In route to the hospital he developed some diaphoresis. All the symptoms resolved by the time he reached the hospital. The patient did not recall having diaphoresis with his prior episodes. This prompted a cardiac evaluation which included cardiac biomarkers, an EKG and echocardiogram. His biomarkers were abnormal and his echocardiogram suggested mildly reduced LV systolic function. Patient does not recall any symptoms of chest discomfort. He has had some difficulty with activity recently due to fatigue. Did not report limiting dyspnea. He has not had chest pain in the past. He denies dizziness or lightheadedness. No presyncope or syncope. Very rare and fleeting palpitations. It seems he has had some cardiac studies previously. He appears to have undergone cardiac catheterization 5 years ago by his report. He recalls this being a quick procedure and no intervention was performed. He also recalls having had stress tests remotely. He cannot recall any symptoms leading up to these tests. He feels that both tests were performed as a matter of routine. Allergies Allergy/AdvReac Type Severity Reaction Status Date / Time No Known Allergies Allergy Unverified 02/01/22 09:17 Home Medications Medication Instructions Recorded Confirmed Type bromocriptine 5 mg capsule 5 mg PO BID 02/01/22 02/01/22 History lisinopril 5 mg tablet 5 mg PO QAM 02/01/22 02/01/22 History Patient History Medical History Acute pancreatitis Essential hypertension Gallstone pancreatitis Neuropathy Pancreatic pseudocyst Pituitary macroadenoma Prolactinoma Surgical History History of hernia repair Social History Smoking Status: Never smoker Hx Alcohol Use: No Hx Substance Use: No Preferred Language: Tamaz[place] Beliefs That Will Affect Care: None Current Living Situation: Family Current Living Situation Comment: lives in two story house with son and grand daughter Other Information That Helps Us Care for You: No Feels Safe at Home: Yes Safety Concerns: Feels Safe At This Time Assistive Devices: Glasses Review of Systems Review of Systems: Per HPI. No current symptoms. Tolerating a clear liquid diet. Physical Exam Physical Exam: The patient is alert and oriented. Mood and affect appeared normal. He answered all questions appropriately. HEENT: Pupils are equal and reactive to light and accommodation. Extraocular movements are intact. The sclerae are anicteric. Neuro: Cranial nerves intact Neck: Patient's neck is supple. He has palpable carotid pulses bilaterally without bruits on auscultation. There is no evidence of jugular venous distention. The thyroid is not enlarged. Lungs: Clear to auscultation bilaterally. He has good air movement without use of accessory muscles. No rales wheezes or rhonchi. Cardiac: Heart demonstrates a regular rate and rhythm. Normal S1 and S2. No murmurs on examination. Pulses: The patient has palpable radial pulses bilaterally that are equal in intensity Extremities: There was no evidence of hypoperfusion. There is no cyanosis or clubbing. There is no edema. Skin: I did not appreciate any rashes on examination today. Results & Data ([facility]) Vital Signs (Past 12 Hours) Vital Signs Temp Pulse Pulse Pulse Resp BP BP 02/02/22 07:58 37.3 C 68 20 121/71 02/02/22 06:10 67 02/02/22 04:00 36.6 C 78 18 130/82 02/02/22 01:57 82 02/01/22 23:05 37.0 C 71 18 113/77 Pulse Ox 02/02/22 07:58 96 02/02/22 06:10 02/02/22 04:00 90 02/02/22 01:57 02/01/22 23:05 93 Laboratory Results Abnormal Lab Results 02/01/22 02/01/22 02/01/22 14:24 20:02 22:24 WBC RBC Hgb Hct MCV MCH MCHC RDW Std Deviation RDW Coeff of Delmar Plt Count MPV Immature Gran % (Auto) Neut % (Auto) Lymph % (Auto) Starke % (Auto) Eos % (Auto) Baso % (Auto) Neut # (Auto) Lymph # (Auto) Starke # (Auto) Eos # (Auto) Baso # (Auto) Immature Gran # (Auto) APTT 34.7 H PTT Ratio 1.3 Sodium Potassium Chloride Carbon Dioxide Anion Gap BUN Creatinine Est Cr Clr Drug Dosing Est GFR ( Amer) Est GFR (Non-Af Amer) BUN/Creatinine Ratio Glucose Calcium Total Bilirubin AST ALT Alkaline Phosphatase Troponin I 1.77 H* 1.78 H* Total Protein Albumin Globulin Albumin/Globulin Ratio Triglycerides Cholesterol LDL Cholesterol, Calc VLDL Cholesterol, Calc HDL Cholesterol Cholesterol/HDL Ratio Lipase 03/19/22 03/20/22 03/20/22 22:24 06:18 06:18 WBC 12.68 H RBC 4.32 L Hgb 12.3 L Hct 37.8 L MCV 87.5 MCH 28.5 MCHC 32.5 RDW Std Deviation 44.6 RDW Coeff of Delmar 13.9 Plt Count 262 MPV 10.6 H Immature Gran % (Auto) 0.2 Neut % (Auto) 75.2 Lymph % (Auto) 11.5 Starke % (Auto) 10.4 Eos % (Auto) 2.5 Baso % (Auto) 0.2 Neut # (Auto) 9.52 H Lymph # (Auto) 1.46 Starke # (Auto) 1.32 H Eos # (Auto) 0.32 Baso # (Auto) 0.03 Immature Gran # (Auto) 0.03 H APTT 33.6 H PTT Ratio 1.2 Sodium 137 Potassium 3.7 Chloride 104 Carbon Dioxide 27 Anion Gap 6 BUN 15 Creatinine 0.87 Est Cr Clr Drug Dosing 97.2 Est GFR ( Amer) 99.2 Est GFR (Non-Af Amer) 85.6 BUN/Creatinine Ratio 17.2 Glucose 110 H Calcium 8.1 L Total Bilirubin 1.0 AST 41 H ALT 53 H Alkaline Phosphatase 87 Troponin I Total Protein 5.7 L Albumin 3.3 L Globulin 2.4 L Albumin/Globulin Ratio 1.4 Triglycerides 62 Cholesterol 79 LDL Cholesterol, Calc 31 VLDL Cholesterol, Calc 12 HDL Cholesterol 36 Cholesterol/HDL Ratio 2.2 Lipase 25 02/02/22 02/02/22 06:18 06:18 WBC RBC Hgb Hct MCV MCH MCHC RDW Std Deviation RDW Coeff of Delmar Plt Count MPV Immature Gran % (Auto) Neut % (Auto) Lymph % (Auto) Starke % (Auto) Eos % (Auto) Baso % (Auto) Neut # (Auto) Lymph # (Auto) Starke # (Auto) Eos # (Auto) Baso # (Auto) Immature Gran # (Auto) APTT 37.5 H PTT Ratio 1.4 Sodium Potassium Chloride Carbon Dioxide Anion Gap BUN Creatinine Est Cr Clr Drug Dosing Est GFR ( Amer) Est GFR (Non-Af Amer) BUN/Creatinine Ratio Glucose Calcium Total Bilirubin AST ALT Alkaline Phosphatase Troponin I 1.03 H* Total Protein Albumin Globulin Albumin/Globulin Ratio Triglycerides Cholesterol LDL Cholesterol, Calc VLDL Cholesterol, Calc HDL Cholesterol Cholesterol/HDL Ratio Lipase Diagnostic Findings Abdominal ultrasound revealed cholelithiasis and a pancreatic pseudocyst. Chest x-ray obtained the time admission not reveal any acute cardiopulmonary process. Echocardiogram performed yesterday revealed mildly reduced LV systolic function with ejection fraction of 45%. Mild left atrial dilation. Mild aortic regurgitation. ECG Additional Comments: Initial EKG demonstrated normal sinus rhythm with some evidence of ST segment abnormality in the lateral precordial leads. A repeat EKG was normal. PG Care Time/CCT Total # of Minutes Spent Total Time Spent with Patient: Total time spent is greater than 50% in coordination of care (as documented) at patient's floor/unit and/or counseling patient: Coding Level of Care Code 37240 Initial Inpt Care Lvl 3 Diagnoses Elevated troponin R77.8 Cardiomyopathy I42.9 Aortic insufficiency I35.1 Essential hypertension I10
--- NOTE | 2022-02-02 10:25 | Electrocardiogram Report ---
Test Reason : Blood Pressure : / mmHG Vent. Rate : 071 BPM Atrial Rate : 071 BPM P-R Int : 170 ms QRS Dur : 082 ms QT Int : 420 ms P-R-T Axes : 032 -03 -23 degrees QTc Int : 457 ms Normal sinus rhythm Abnormal ECG When compared with ECG of 01-FEB-2022 05:31, T wave inversion now evident in Inferior leads Confirmed by Elliot Lima ([id number]) on 02/02/2022 10:25:16 AM Referred By: REFERRED SELF Confirmed By:Evelio Lima
--- NOTE | 2022-02-02 12:27 | Hospitalist Progress Note ---
Date of Service February 02, 2022 Assessment & Plan (1) Sepsis: Plan: SIRS criteria met - elevated HR and WBC RUQ pain remains on exam - suspect infection of cholecystitis vs. cholangitis Continue Zosyn pending blood culture results - currently 1/ with GPC in chains Consult gastroenterology - no need for MRCP/ERCP Consult surgery - recommending cholecystectomy however deferred operation pending cardiac workup (2) Elevated troponin: Plan: Low suspicion of ACS however troponin initially performed due to diaphoresis out of proportion to other findings on admission Suspect demand ischemia in setting of cholecystitis with probably underlying mod-severe CAD LDL 31 - will continue on atorvastatin 40 mg PO pending cardiac cath Started on metoprolol tartrate 25mg PO BID Continue low dose heparin IV drip Cardiac catheterization planned for tomorrow per cardiology for pre-op workup - discussed possibly bacteremia vs contaminent with Dr Lima. NPO after midnight (3) Essential hypertension: Plan: Hold lisinopril Continue metoprolol as above (4) Pancreatic pseudocyst: Plan: Appears to be stable based on comparison of reports from prior imaging. Plan: VTE Prophylaxis - heparin IV Diet - clear liquids, NPO @ midnight Disposition - admit to med/tele Admission and Anticipated Discharge Date Admission Date: February 01, 2022 Subjective No chest pain or abdominal pain. No fever or chills. Felling well at this time. Tolerating clear liquid diet. Review of Systems Review of Systems: All systems reviewed & are unremarkable except as noted in Subjective Physical Exam Constitutional: WD/WN, vitals as above Eyes: + anicteric sclerae; normal pupil size Respiratory: normal respiratory effort, lungs clear to auscultation Cardiovascular: RRR, no murmur, no edema Gastrointestinal (Abdomen): Inspection/Auscultation: normal bowel sounds Percussion/Palpation: + abdomen tender (mild RUQ pain on inspiration) and abdomen soft; no guarding and abdomen not rigid Musculoskeletal: no cyanosis or clubbing, extremities motor strength 5/5 Skin: no rashes, warm and dry Neurologic: moves all extremities and awake; not confused Psychiatric: A+Ox3, euthymic affect Results & Data Results & Data ([facility]) Vital Signs (Past 12 Hours) Vital Signs Temp Pulse Pulse Resp BP BP Pulse Ox 02/02/22 10:54 37.5 C 64 19 118/76 93 02/02/22 07:58 37.3 C 68 20 121/71 96 02/02/22 06:10 67 02/02/22 04:00 36.6 C 78 18 130/82 90 02/02/22 01:57 82 PG Care Time/CCT Total # of Minutes Spent Total Time Spent with Patient: Total time spent is greater than 50% in coordination of care (as documented) at patient's floor/unit and/or counseling patient: Coding Level of Care Code 45581 Subseq Hosp Care Lvl 2 Diagnoses Sepsis A41.9 Essential hypertension I10 Pancreatic pseudocyst K86.3 Elevated troponin R77.8
--- NOTE | 2022-02-02 14:38 | Surgery Progress Note ---
Date of Service February 02, 2022 Assessment & Plan (1) Sepsis: Plan: 71-year-old man with gallstones and likely acute cholecystitis. This appears to have improved on IV antibiotics and he has no further rigors or abdominal pain. He is undergoing cardiac evaluation and has not currently been cleared for surgery by cardiology. He may require cardiac catheterization. We discussed delaying his gallbladder removal until such a time that he is cleared by cardiology. He does have a biliary stent in place and so a delay is not likely to worsen his overall condition. Will await cardiology clearance. OK to advance diet to low fat as tolerated. Admission and Anticipated Discharge Date Admission Date: February 01, 2022 Subjective No chest pain or abdominal pain. No fever or chills. Felling well at this time. Evaluated by cardiology and is felt to need a cardiac catheterization. Remains on IV heparin. Physical Exam Constitutional: WD/WN, vitals as above Eyes: PERRL, conjunctivae normal, anicteric sclerae ENMT: external ear and nose normal, oropharynx normal Neck: normal visual inspection and trachea midline Respiratory: normal respiratory effort, lungs clear to auscultation Cardiovascular: RRR, no murmur, no edema Gastrointestinal (Abdomen): normal bowel sounds, soft, nontender, no hepatosplenomegaly Musculoskeletal: Extremities: extremities normal to inspection Neurologic: awake; no focal motor deficits Psychiatric: A+Ox3, euthymic affect Results & Data ([facility]) Vital Signs (Past 12 Hours) Vital Signs Temp Pulse Pulse Resp BP BP Pulse Ox 02/02/22 10:54 37.5 C 64 19 118/76 93 02/02/22 07:58 37.3 C 68 20 121/71 96 02/02/22 06:10 67 02/02/22 04:00 36.6 C 78 18 130/82 90
[2022-02-02 14:42] LABS: Partial Thromboplastin Ratio 1.4; Partial Thromboplastin Time 38.1 Seconds (21.0-31.0)
[2022-02-02] MEDS: HEPARIN SODIUM/DEXTROSE 25,000 UNITS/500 ML BAG IV SCH (14:44)
[2022-02-02] MEDS: ATORVASTATIN 40 MG TAB PO SCH (20:58)
[2022-02-02] MEDS: ACETAMINOPHEN 325 MG TAB PO PRN (20:59)
[2022-02-02 21:11] LABS: Partial Thromboplastin Ratio 1.3; Partial Thromboplastin Time 36.5 Seconds (21.0-31.0)
[2022-02-03] MEDS: PIPERACILLIN/TAZOBACTAM 4.5 GM in DEXTROSE 5% 100 ML IV SCH ×3 (03:56→20:12)
[2022-02-03] MEDS: HEPARIN SODIUM/DEXTROSE 25,000 UNITS/500 ML BAG IV SCH ×3 (07:11→15:09)
[2022-02-03 07:14] LABS: Estimated Average Glucose 111 mg/dl; Hemoglobin A1C 5.5 % (4.5-5.6)
[2022-02-03 07:47] LABS: Basophils # (auto) 0.03 K/uL (0-0.2); Basophils % (auto) 0.3 %; Eosinophils % (auto) 1.9 %; Hematocrit (blood only) 38.3 % (42-52); Hemoglobin 12.7 g/dL (14.0-18.0); Immature Granulocytes # (auto) 0.03 K/uL (0.00-0.02); Immature Granulocytes % (auto) 0.3 %; Lymphocytes # (auto) 1.97 K/uL (1.2-3.4); Lymphocytes % (auto) 19.1 %; Mean Corpuscular Hemoglobin 28.9 pg (25-34); Mean Corpuscular Hgb Conc 33.2 g/dL (32-36); Mean Corpuscular Volume 87.2 fL (80-100); Mean Platelet Volume 10.6 fL (7.4-10.4); Monocytes % (auto) 10.7 %; Neutrophils # (auto) 6.97 K/uL (1.4-6.5); Neutrophils % (auto) 67.7 %; Platelet Count 277 K/uL (130-400); RDW Coefficient of Variation 13.9 % (11.5-14.5); RDW Standard Deviation 44.7 fL (36.4-46.3); Red Blood Count 4.39 M/uL (4.7-6.1)
[2022-02-03 08:07] LABS: Albumin Globulin Ratio 1.3 (0.9-2); Albumin Level 3.4 gm/dl (3.4-5.0); BUN Creatinine Ratio 14.8 (10-20); Bilirubin,Total 1.2 mg/dl (0.2-1.0); Calcium 8.3 mg/dl (8.5-10.1); Creatinine Clr Calc Pharmacy 95.9 ml/min; Est GFR (African American) 98.8 ml/min; Est GFR (Non-African American) 85.2 ml/min; Globulin 2.7 gm/dl (2.5-4.0); Partial Thromboplastin Ratio 1.5; Partial Thromboplastin Time 40.3 Seconds (21.0-31.0); Potassium 3.7 mmol/L (3.5-5.1); Total Protein 6.1 gm/dl (6.0-8.3)
[2022-02-03] MEDS: ASPIRIN 81 MG ECTAB PO SCH (08:26)
[2022-02-03] MEDS: METOPROLOL TARTRATE 25 MG TAB PO SCH ×2 (08:26→21:48)
--- NOTE | 2022-02-03 11:42 | Pre Anesthesia Assessment ---
Date of Service February 03, 2022 Pre Sedation Assessment Vital Signs Temp Pulse Pulse Pulse Resp BP BP 02/03/22 11:00 36.8 C 89 13 136/80 02/03/22 07:37 36.9 C 68 14 134/84 02/03/22 07:17 64 02/03/22 04:00 37.0 C 65 18 128/83 02/03/22 00:59 70 02/03/22 00:03 37.0 C 74 18 137/81 02/02/22 19:30 38.5 C H 80 18 123/78 02/02/22 15:22 37.3 C 66 18 138/75 02/02/22 14:17 77 Pulse Ox 02/03/22 11:00 96 02/03/22 07:37 94 02/03/22 07:17 02/03/22 04:00 92 02/03/22 00:59 02/03/22 00:03 93 02/02/22 19:30 94 02/02/22 15:22 95 02/02/22 14:17 Cardiovascular + regular rate and + regular rhythm Respiratory + respiratory effort normal Pre-Sedation Airway Assessment Smoking Status: Never smoker Hx Sleep Apnea: No Hx Difficult Intubation: No Short, Thick Neck: No Thyromental Distance: > or= 3.5 Finger Breadths Oral Cavity: + WNL Mallampati Class: III ASA: ASA3 Procedure Planning Contraindications for Sedation: none Current Medications Reviewed: Yes Notes The planned sedation has been discussed with the patient. Informed Consent was obtained. I have identified the patient, determined the appropriateness of sedation and have assessed the patient immediately prior to the procedure. All medicine(s) and interventions are by my order.
--- NOTE | 2022-02-03 12:41 | Surgery Progress Note ---
Date of Service February 03, 2022 Assessment & Plan (1) Sepsis: Plan: 71-year-old man with gallstones and likely acute cholecystitis. This appears to have improved on IV antibiotics and he has no further rigors or abdominal pain. He is undergoing cardiac catheterization today. We discussed delaying his gallbladder removal until such a time that he is cleared by cardiology. He does have a biliary stent in place and so a delay is not likely to worsen his overall condition. Will await results of cardiac catheterization today to determine surgical planning for cholecystectomy. NPO today for cardiac cath Can advance diet following cath from surgery standpoint to low fat repeat am labs will discuss timing of cholecystectomy with patient tomorrow Dr. Mcadams has seen and examined pt, agrees with above. Admission and Anticipated Discharge Date Admission Date: February 01, 2022 Subjective having some right upper sided abdominal pain no nausea or vomiting had bowel movement this morning is going for cardiac catheterization today Physical Exam Constitutional: WD/WN, vitals as above no acute distress and not ill appearing Neck: normal visual inspection and trachea midline Respiratory: normal respiratory effort; no respiratory distress Gastrointestinal (Abdomen): Inspection/Auscultation: abdomen normal to inspection; abdomen not distended Percussion/Palpation: + abdomen tender (RUQ) and abdomen soft; no guarding and abdomen not rigid Skin: no rashes, warm and dry Psychiatric: A+Ox3, euthymic affect Results & Data ([facility]) Vital Signs (Past 12 Hours) Vital Signs Temp Pulse Pulse Pulse Resp BP Pulse Ox 02/03/22 11:00 36.8 C 89 13 136/80 96 02/03/22 07:37 36.9 C 68 14 134/84 94 02/03/22 07:17 64 02/03/22 04:00 37.0 C 65 18 128/83 92 02/03/22 00:59 70 Laboratory Results 02/03/22 02/03/22 02/03/22 Range/Units 07:24 07:24 07:24 WBC 10.30 (4.8-10.8) K/uL RBC 4.39 L (4.7-6.1) M/uL Hgb 12.7 L (14.0-18.0) g/dL Hct 38.3 L (42-52) % MCV 87.2 (80-100) fL MCH 28.9 (25-34) pg MCHC 33.2 (32-36) g/dL RDW Std Deviation 44.7 (36.4-46.3) fL RDW Coeff of Delmar 13.9 (11.5-14.5) % Plt Count 277 (130-400) K/uL MPV 10.6 H (7.4-10.4) fL Immature Gran % (Auto) 0.3 % Neut % (Auto) 67.7 % Lymph % (Auto) 19.1 % [place] % (Auto) 10.7 % Eos % (Auto) 1.9 % Baso % (Auto) 0.3 % Neut # (Auto) 6.97 H (1.4-6.5) K/uL Lymph # (Auto) 1.97 (1.2-3.4) K/uL [place] # (Auto) 1.10 H (0.11-0.59) K/uL Eos # (Auto) 0.20 (0-0.5) K/uL Baso # (Auto) 0.03 (0-0.2) K/uL Immature Gran # (Auto) 0.03 H (0.00-0.02) K/uL APTT 40.3 H (21.0-31.0) Seconds PTT Ratio 1.5 Sodium 137 (136-145) mmol/L Potassium 3.7 (3.5-5.1) mmol/L Chloride 102 (98-107) mmol/L Carbon Dioxide 30 (21-32) mmol/L Anion Gap 5 (3-11) BUN 13 (6-23) mg/dl Creatinine 0.88 (0.6-1.4) mg/dl Est Cr Clr Drug Dosing 95.9 ml/min Est GFR ( Amer) 98.8 ml/min Est GFR (Non-Af Amer) 85.2 ml/min BUN/Creatinine Ratio 14.8 (10-20) Glucose 114 H (70-99(Fasting)) mg/dl Estimat Average Glucose mg/dl Hemoglobin A1c (4.5-5.6) % Calcium 8.3 L (8.5-10.1) mg/dl Total Bilirubin 1.2 H (0.2-1.0) mg/dl AST 31 (13-39) U/L ALT 56 H (7-52) U/L Alkaline Phosphatase 93 (34-104) U/L Troponin I (0-0.04) ng/ml Total Protein 6.1 (6.0-8.3) gm/dl Albumin 3.4 (3.4-5.0) gm/dl Globulin 2.7 (2.5-4.0) gm/dl Albumin/Globulin Ratio 1.3 (0.9-2) 02/02/22 02/02/22 02/02/22 Range/Units 20:49 14:17 14:17 WBC (4.8-10.8) K/uL RBC (4.7-6.1) M/uL Hgb (14.0-18.0) g/dL Hct (42-52) % MCV (80-100) fL MCH (25-34) pg MCHC (32-36) g/dL RDW Std Deviation (36.4-46.3) fL RDW Coeff of Delmar (11.5-14.5) % Plt Count (130-400) K/uL MPV (7.4-10.4) fL Immature Gran % (Auto) % Neut % (Auto) % Lymph % (Auto) % [place] % (Auto) % Eos % (Auto) % Baso % (Auto) % Neut # (Auto) (1.4-6.5) K/uL Lymph # (Auto) (1.2-3.4) K/uL [place] # (Auto) (0.11-0.59) K/uL Eos # (Auto) (0-0.5) K/uL Baso # (Auto) (0-0.2) K/uL Immature Gran # (Auto) (0.00-0.02) K/uL APTT 36.5 H 38.1 H (21.0-31.0) Seconds PTT Ratio 1.3 1.4 Sodium (136-145) mmol/L Potassium (3.5-5.1) mmol/L Chloride (98-107) mmol/L Carbon Dioxide (21-32) mmol/L Anion Gap (3-11) BUN (6-23) mg/dl Creatinine (0.6-1.4) mg/dl Est Cr Clr Drug Dosing ml/min Est GFR ( Amer) ml/min Est GFR (Non-Af Amer) ml/min BUN/Creatinine Ratio (10-20) Glucose (70-99(Fasting)) mg/dl Estimat Average Glucose mg/dl Hemoglobin A1c (4.5-5.6) % Calcium (8.5-10.1) mg/dl Total Bilirubin (0.2-1.0) mg/dl AST (13-39) U/L ALT (7-52) U/L Alkaline Phosphatase (34-104) U/L Troponin I 0.70 H* (0-0.04) ng/ml Total Protein (6.0-8.3) gm/dl Albumin (3.4-5.0) gm/dl Globulin (2.5-4.0) gm/dl Albumin/Globulin Ratio (0.9-2) 02/02/22 Range/Units 06:18 WBC (4.8-10.8) K/uL RBC (4.7-6.1) M/uL Hgb (14.0-18.0) g/dL Hct (42-52) % MCV (80-100) fL MCH (25-34) pg MCHC (32-36) g/dL RDW Std Deviation (36.4-46.3) fL RDW Coeff of Delmar (11.5-14.5) % Plt Count (130-400) K/uL MPV (7.4-10.4) fL Immature Gran % (Auto) % Neut % (Auto) % Lymph % (Auto) % [place] % (Auto) % Eos % (Auto) % Baso % (Auto) % Neut # (Auto) (1.4-6.5) K/uL Lymph # (Auto) (1.2-3.4) K/uL [place] # (Auto) (0.11-0.59) K/uL Eos # (Auto) (0-0.5) K/uL Baso # (Auto) (0-0.2) K/uL Immature Gran # (Auto) (0.00-0.02) K/uL APTT (21.0-31.0) Seconds PTT Ratio Sodium (136-145) mmol/L Potassium (3.5-5.1) mmol/L Chloride (98-107) mmol/L Carbon Dioxide (21-32) mmol/L Anion Gap (3-11) BUN (6-23) mg/dl Creatinine (0.6-1.4) mg/dl Est Cr Clr Drug Dosing ml/min Est GFR ( Amer) ml/min Est GFR (Non-Af Amer) ml/min BUN/Creatinine Ratio (10-20) Glucose (70-99(Fasting)) mg/dl Estimat Average Glucose 111 mg/dl Hemoglobin A1c 5.5 (4.5-5.6) % Calcium (8.5-10.1) mg/dl Total Bilirubin (0.2-1.0) mg/dl AST (13-39) U/L ALT (7-52) U/L Alkaline Phosphatase (34-104) U/L Troponin I (0-0.04) ng/ml Total Protein (6.0-8.3) gm/dl Albumin (3.4-5.0) gm/dl Globulin (2.5-4.0) gm/dl Albumin/Globulin Ratio (0.9-2)
--- NOTE | 2022-02-03 13:15 | Hospitalist Progress Note ---
Date of Service February 03, 2022 Assessment & Plan (1) Sepsis: Plan: SIRS criteria met - elevated HR and WBC RUQ pain remains on exam, recurred after advancing diet yesterday - suspect infection of cholecystitis vs. cholangitis Continue Zosyn pending blood culture results - currently 1/4 with enterococcus faecium - presumed true infection. Repeat blood cultures drawn this morning Consult gastroenterology - no need for MRCP/ERCP Consult surgery - recommending cholecystectomy however deferred operation pending cardiac workup (2) Bacteremia: Plan: Enterococcus faecium growing in 1/2 blood culture. Repeat blood cultures this morning to make sure he is clearing this. Add vancomycin to med regimen Consult infectious disease ?add gentamicin for synergistic coverage (3) Elevated troponin: Plan: Low suspicion of ACS however troponin initially performed due to diaphoresis out of proportion to other findings on admission Suspect demand ischemia in setting of cholecystitis with probably underlying mod-severe CAD LDL 31 - will continue on atorvastatin 40 mg PO pending cardiac cath Started on metoprolol tartrate 25mg PO BID Continue low dose heparin IV drip ASA 81mg PO daily Cardiac catheterization planned for today per cardiology for pre-op workup - discussed bacteremia with Dr Lima NPO pending cardiac cath (4) Essential hypertension: Plan: Hold lisinopril Continue metoprolol as above (5) Pancreatic pseudocyst: Plan: Appears to be stable based on comparison of reports from prior imaging. Plan: VTE Prophylaxis - heparin IV Diet - NPO pending cardiac cath, can advance to low fat, heart healthy diet follow this Disposition - continue on med/tele Admission and Anticipated Discharge Date Admission Date: February 01, 2022 Subjective No chest pain, shortness of breath or diaphoresis. Cardiac catheterization planned for today. Reports right sided abdominal pain after advancing diet yesterday but since resolved. Normal BM this morning. No fever, chills, nausea or vomiting. Review of Systems Review of Systems: All systems reviewed & are unremarkable except as noted in Subjective Physical Exam Constitutional: WD/WN, vitals as above Eyes: + anicteric sclerae; normal pupil size Respiratory: normal respiratory effort, lungs clear to auscultation Cardiovascular: RRR, no murmur, no edema Gastrointestinal (Abdomen): Inspection/Auscultation: normal bowel sounds Percussion/Palpation: + abdomen tender (mild RUQ pain on inspiration) and abdomen soft; no guarding and abdomen not rigid Musculoskeletal: no cyanosis or clubbing, extremities motor strength 5/5 Skin: no rashes, warm and dry Neurologic: moves all extremities and awake; not confused Psychiatric: A+Ox3, euthymic affect Results & Data Results & Data ([facility]) Vital Signs (Past 12 Hours) Vital Signs Temp Pulse Pulse Pulse Resp BP Pulse Ox 02/03/22 11:00 36.8 C 89 13 136/80 96 02/03/22 07:37 36.9 C 68 14 134/84 94 02/03/22 07:17 64 02/03/22 04:00 37.0 C 65 18 128/83 92 PG Care Time/CCT Total # of Minutes Spent Total Time Spent with Patient: Total time spent is greater than 50% in coordination of care (as documented) at patient's floor/unit and/or counseling patient: Coding Level of Care Code 42416 Subseq Hosp Care Lvl 3 Diagnoses Sepsis A41.9 Elevated troponin R77.8 Essential hypertension I10 Pancreatic pseudocyst K86.3 Bacteremia R78.81
[2022-02-03] MEDS ORDERED: MIDAZOLAM HCL 1 MG/ML 2ML VIAL ONE (13:16)
[2022-02-03] MEDS ORDERED: HEPARIN (PORCINE) 1000 UNIT/ML 10 ML (CATH LAB USE ONLY) ONE (13:17)
[2022-02-03] MEDS ORDERED: niCARdipine HCL INJ 2.5 MG/ML 10 ML AMP ONE (13:17)
[2022-02-03] MEDS ORDERED: fentaNYL citrate 100 MCG/2 ML VIAL ONE (13:17)
[2022-02-03] MEDS ORDERED: NITROGLYCERIN/D5W 100MCG/ML 20ML SYR ONE (13:18)
[2022-02-03] MEDS ORDERED: VANCOMYCIN CONSULT ACTIVE PRN (13:27)
[2022-02-03] MEDS ORDERED: VANCOMYCIN HCL 2,250 MG in SODIUM CHLORIDE 0.9% 500 ML IV ONE (13:45)
--- NOTE | 2022-02-03 14:10 | Post Anesthesia Assessment ---
Date of Service February 03, 2022 Post Sedation Assessment Vital Signs Temp Pulse Pulse Pulse Resp BP BP 02/03/22 13:15 68 17 150/92 H 02/03/22 11:00 36.8 C 89 13 136/80 02/03/22 07:37 36.9 C 68 14 134/84 02/03/22 07:17 64 02/03/22 04:00 37.0 C 65 18 128/83 02/03/22 00:59 70 02/03/22 00:03 37.0 C 74 18 137/81 02/02/22 19:30 38.5 C H 80 18 123/78 02/02/22 15:22 37.3 C 66 18 138/75 02/02/22 14:17 77 Pulse Ox 02/03/22 13:15 96 02/03/22 11:00 96 02/03/22 07:37 94 02/03/22 07:17 02/03/22 04:00 92 02/03/22 00:59 02/03/22 00:03 93 02/02/22 19:30 94 02/02/22 15:22 95 02/02/22 14:17 Recovery Score Activity: Moves 4 extremities Respiration: Deep Breath/Cough Circulation: +/-20% PreAnes Value Consciousness: Fully Awake Oxygen Saturation: > 92% On Room Air Discharge Sedation Level of Care: Fast Track Phase II Post Sedation Plan On clinical assessment, the patient appears to have tolerated the sedation without complications. Patient is recovering as anticipated. Patient will continue to be monitored by nursing and may be discharged when sedation discharge criteria are met per below protocol. Upon Completions of procedure up to 15 minutes continue every 5 minute vital signs and the P.A.R. score; then discharge to a Phase I or Fast Track to Phase II per the following guidelines: * Discharge Patient to appropriate Phase II area if PAR is 8 or greater or return to pre- procedure baseline. The post - procedure orders will be as directed. * If PAR score is less than 8 or not return to pre-procedure baseline then patient will follow Phase I monitoring till PAR is reached for Phase II. The Phase I may be done in procedure room or may call to secure a Phase I area. * If naloxone or flumazenil are used for reversal, hold in Phase I for continued monitoring from when last reversal dose was given for a minimum of 60 minutes or longer pending the nurse and/or physician discretion of patient condition before discharge to Phase II. Please call the Sedation Physician to re-evaluate and complete post-note for discharge to Phase II area. Do NOT discharge from procedure sedation or Phase 1 until post- sedation evaluation note is complete by procedure /sedation MD Sedation Discharge Instructions to be given to the patient at discharge to home.
--- NOTE | 2022-02-03 14:10 | Pharmacy Report ---
Pharmacy Vanc AUC Short Note - Date of Service February 03, 2022 - Assessment & Plan Assessment 71 year old M admitted with concerns for pancreatic pseudocyst, cholecystitis started on zosyn. Blood cultures now with enterococcus faecium R to penicillins, started on vancomycin today. He has complex medical history with biliary pancreatitis/biliary stent placement. Undergoing cardiac catheterization today. Repeat blood cultures pending Plan Vancomycin * AUC/LUIS ANTONIO is the preferred PK/PD target for vancomycin * AUC guided dosing is effective and associated with decreased risk of nephrotoxicity compared to traditional trough targets * Will give loading dose of vancomycin 2250 mg x 1 (~20 mg/kg/dose), then will start vancomycin 1250 mg iv q 12 hrs * This dosing is estimated to achieve a trough level of 18 mcg/mL is predicted to achieve target AUC/LUIS ANTONIO of 400-600 mg/L.hr and may be associated with a 15 % risk of nephrotoxicity * Will plan to order level in next 24-28 hrs to assess dosing Pharmacy will continue to follow and will adjust dose/frequency as necessary. Thank you.
--- NOTE | 2022-02-03 14:10 | Cardiac Catheterization ---
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 Clinical evaluation leading to the procedure CAD Presenation: Non STEMI Diagnostic Physicians Name: Elliot Lima MD Closure Device Recommendations: Medical Therapy and/or Counseling Cardiac Cath Procedure Full Procedure Date February 03, 2022 Pre-Procedure Diagnosis Pre-Procedure Diagnosis: Non STEMI AUC Score AUC Score: 7 Post-Procedure Diagnosis Post-Procedure Diagnosis: Normal Coronary Arteries and Normal Intracardiac Pressures Procedure(s) Performed Procedure(s) Performed: Coronary Angiography and Left Heart Cath Store Receiver Elliot Lima MD Business Support Coordinator(s) none Estimated Blood Loss Estimated Blood Loss: 10cc Medication(s) Medication(s): Fentanyl, Heparin, Lidocaine 1%, Nicardipine, Nitroglycerin and Versed Summary of Findings Procedure performed: Cardiac catheterization, selective coronary angiography, left heart catheterization Staff hospice clinical supervisor: Elliot Lima MD Indication: The patient is a 71-year-old gentleman presented with diaphoresis. He had elevated troponin. He require preoperative risk stratification. Procedure in detail: The patient was informed of the risks benefits and alternatives to the intended procedure, he understood such and wished to proceed. He was taken to the [facility] catheterization suite in a fasting state. Conscious sedation was administered per protocol and the patient was monitored electrocardiographically throughout today's procedure. The right wrist area was prepped and draped in usual sterile fashion. This area was anesthetized using subcutaneous administration of a lidocaine solution. The right radial artery was then accessed using Seldinger technique, and a arterial sheath was placed at this site over a guidewire. The sheath was used to facilitate passage of the cardiac catheter for coronary angiography and left heart catheterization. Coronary angiogram was then obtained in multiple orthogonal views prior to removal of the catheter. At the conclusion of the procedure the sheath was removed and hemostasis was achieved at the access site using manual pressure. The patient tolerated procedure well, there were no immediate complications. Equipment used: 5 [place] vLineer 4, 5 [place] 3D Findings: Coronary angiography Left main: Left main coronary artery is normal in size and caliber. Essentially trifurcate into the left anterior descending a large ramus intermedius and medium-sized circumflex vessel. No disease in the left main coronary. Left anterior descending: Left anterior descending was a large transapical vessel. It produced 4 medium-sized diagonal branches. There were no obstructive lesions in the LAD distribution. Left circumflex: Left circumflex was a nondominant vessel. He was relatively small but did produce a single OM branch. There were no obstructive lesions in this vessel. Ramus intermedius: Ramus intermedius was a large vessel. There was no disease in this vessel. Right coronary artery: The right coronary artery had an anterior takeoff. It was not selectively engage but good images were obtained. It was very large in caliber and produced a large PDA and PLV branch. There were no obstructive lesions in this vessel. Impression: Right dominant coronary system No evidence of obstructive coronary disease No evidence of aortic stenosis Normal left ventricular filling pressures Hemodynamics Rest Ao:: 113/70 mm of mercury Final Ao: 136/81 mm of mercury LV: 113/0 mm of mercury Left ventricular end-diastolic pressure 1 mm of mercury Recommendations Recommendations: Medical Therapy and/or Counseling Specimens Specimens: None Radiation Exposure (mGy) n/a Contrast (mls) Fifty-five Procedural Complication(s) None Disposition Forestry Laborer Holding/Recovery I attest to the content of the Intraoperative Record and any orders documented therein. Any exceptions are noted below. [facility] Card Cath Procedure Codes Cardiac Catheterization Procedure 1: Cardiovascular Cath Procedures: 72400 Coronaries and LHC (+/-LV) Moderate Sedation Procedure 1: Sedation/Anesthesia: 75598 Mod Sedation by the same physician;Init15 Min Child Age 5 & Up Procedure 2: Sedation/Anesthesia: 90627 Mod Sedation by the same physician; Ea [id number] Minutes PG Care Time/CCT Total # of Minutes Spent Total Time Spent with Patient: Total time spent is greater than 50% in coordination of care (as documented) at patient's floor/unit and/or counseling patient:
--- NOTE | 2022-02-03 16:49 | Cardiology Progress Note ---
Date of Service February 03, 2022 Assessment & Plan (1) Elevated troponin: (2) Cardiomyopathy: (3) Aortic insufficiency: (4) Essential hypertension: Plan: 1. Elevated troponin: Apparently related to his acute illness. No evidence of an acute coronary syndrome. No obstructive coronary disease. 2. Cardiomyopathy: While his overall LV function appeared sub normal on echocardiography, his left ventricular filling pressures were normal. This would suggest he is well-compensated. I think we could continue his outpatient lisinopril and add metoprolol succinate 25 mg daily at the time of discharge. 3. Aortic insufficiency: Mild. This can be followed over time. At this point I feel his risk for perioperative cardiovascular events is low. No evidence of an acute coronary syndrome. Well compensated mild cardiomyopathy. No other symptoms suggestive of unstable cardiac disease. He could proceed with an operation without any additional cardiac testing or precaution at this point. Admission and Anticipated Discharge Date Admission Date: February 01, 2022 Subjective This afternoon the patient claimed he feeling well. No pain at the radial access site in the right hand. He is able to tolerate a low-fat diet last evening. No current abdominal complaints. No symptoms of chest pain or recurrent diaphoresis. Review of Systems Review of Systems: Per HPI Physical Exam Physical Exam: The patient is alert and oriented. Mood and affect appeared normal. He answered all questions appropriately. HEENT: Pupils are equal and reactive to light and accommodation. Extraocular movements are intact. The sclerae are anicteric. Neuro: Cranial nerves intact Lungs: Normal respiratory effort Cardiac: Regular rhythm. Pulses: Right wrist with hemo band in place. Results & Data ([facility]) Vital Signs (Past 12 Hours) Vital Signs Temp Pulse Pulse Pulse Resp BP BP 02/03/22 15:22 37.2 C 72 16 153/91 H 02/03/22 15:03 69 02/03/22 14:52 37.8 C H 66 16 133/79 02/03/22 14:23 66 17 144/84 H 02/03/22 14:12 68 17 159/86 H 02/03/22 13:15 68 17 150/92 H 02/03/22 11:00 36.8 C 89 13 136/80 02/03/22 07:37 36.9 C 68 14 134/84 02/03/22 07:17 64 Pulse Ox 02/03/22 15:22 93 02/03/22 15:03 02/03/22 14:52 94 02/03/22 14:23 95 02/03/22 14:12 95 02/03/22 13:15 96 02/03/22 11:00 96 02/03/22 07:37 94 02/03/22 07:17 Laboratory Results Abnormal Lab Results 02/02/22 02/02/22 02/03/22 06:18 20:49 07:24 WBC 10.30 RBC 4.39 L Hgb 12.7 L Hct 38.3 L MCV 87.2 MCH 28.9 MCHC 33.2 RDW Std Deviation 44.7 RDW Coeff of [place] 13.9 Plt Count 277 MPV 10.6 H Immature Gran % (Auto) 0.3 Neut % (Auto) 67.7 Lymph % (Auto) 19.1 [place] % (Auto) 10.7 Eos % (Auto) 1.9 Baso % (Auto) 0.3 Neut # (Auto) 6.97 H Lymph # (Auto) 1.97 [place] # (Auto) 1.10 H Eos # (Auto) 0.20 Baso # (Auto) 0.03 Immature Gran # (Auto) 0.03 H APTT 36.5 H PTT Ratio 1.3 Sodium Potassium Chloride Carbon Dioxide Anion Gap BUN Creatinine Est Cr Clr Drug Dosing Est GFR ( Amer) Est GFR (Non-Af Amer) BUN/Creatinine Ratio Glucose Estimat Average Glucose 111 Hemoglobin A1c 5.5 Calcium Total Bilirubin AST ALT Alkaline Phosphatase Total Protein Albumin Globulin Albumin/Globulin Ratio 02/03/22 02/03/22 07:24 07:24 WBC RBC Hgb Hct MCV MCH MCHC RDW Std Deviation RDW Coeff of [place] Plt Count MPV Immature Gran % (Auto) Neut % (Auto) Lymph % (Auto) [place] % (Auto) Eos % (Auto) Baso % (Auto) Neut # (Auto) Lymph # (Auto) [place] # (Auto) Eos # (Auto) Baso # (Auto) Immature Gran # (Auto) APTT 40.3 H PTT Ratio 1.5 Sodium 137 Potassium 3.7 Chloride 102 Carbon Dioxide 30 Anion Gap 5 BUN 13 Creatinine 0.88 Est Cr Clr Drug Dosing 95.9 Est GFR ( Amer) 98.8 Est GFR (Non-Af Amer) 85.2 BUN/Creatinine Ratio 14.8 Glucose 114 H Estimat Average Glucose Hemoglobin A1c Calcium 8.3 L Total Bilirubin 1.2 H AST 31 ALT 56 H Alkaline Phosphatase 93 Total Protein 6.1 Albumin 3.4 Globulin 2.7 Albumin/Globulin Ratio 1.3 Diagnostic Findings Coronary angiography performed today revealed normal coronary arteries without obstructive coronary disease. Normal left ventricular filling pressure. PG Care Time/CCT Total # of Minutes Spent Total Time Spent with Patient: Total time spent is greater than 50% in coordination of care (as documented) at patient's floor/unit and/or counseling patient: Coding Level of Care Code 05330 Subseq Hosp Care Lvl 2 Diagnoses Elevated troponin R77.8 Cardiomyopathy I42.9 Aortic insufficiency I35.1 Essential hypertension I10
[2022-02-03] MEDS: ATORVASTATIN 40 MG TAB PO SCH (21:47)
[2022-02-04] MEDS: VANCOMYCIN HCL 1,250 MG in SODIUM CHLORIDE 0.9% 250 ML IV SCH ×2 (00:55→15:02)
[2022-02-04] MEDS: PIPERACILLIN/TAZOBACTAM 4.5 GM in DEXTROSE 5% 100 ML IV SCH ×3 (04:45→21:14)
[2022-02-04 06:13] LABS: Basophils # (auto) 0.02 K/uL (0-0.2); Basophils % (auto) 0.2 %; Eosinophils # (auto) 0.09 K/uL (0-0.5); Eosinophils % (auto) 0.9 %; Hematocrit (blood only) 34.3 % (42-52); Hemoglobin 11.5 g/dL (14.0-18.0); Immature Granulocytes # (auto) 0.03 K/uL (0.00-0.02); Immature Granulocytes % (auto) 0.3 %; Lymphocytes # (auto) 1.64 K/uL (1.2-3.4); Lymphocytes % (auto) 15.6 %; Mean Corpuscular Hgb Conc 33.5 g/dL (32-36); Mean Corpuscular Volume 86.4 fL (80-100); Mean Platelet Volume 10.1 fL (7.4-10.4); Monocytes # (auto) 1.31 K/uL (0.11-0.59); Monocytes % (auto) 12.5 %; Neutrophils # (auto) 7.41 K/uL (1.4-6.5); Neutrophils % (auto) 70.5 %; Platelet Count 247 K/uL (130-400); RDW Coefficient of Variation 13.7 % (11.5-14.5); RDW Standard Deviation 43.7 fL (36.4-46.3); Red Blood Count 3.97 M/uL (4.7-6.1)
[2022-02-04 06:32] LABS: Albumin Globulin Ratio 1.2 (0.9-2); Albumin Level 3.1 gm/dl (3.4-5.0); BUN Creatinine Ratio 10.5 (10-20); Calcium 8.2 mg/dl (8.5-10.1); Creatinine Clr Calc Pharmacy 98.8 ml/min; Est GFR (African American) 99.7 ml/min; Globulin 2.5 gm/dl (2.5-4.0); Total Protein 5.6 gm/dl (6.0-8.3)
[2022-02-04 06:37] LABS: Partial Thromboplastin Time 27.4 Seconds (21.0-31.0)
[2022-02-04] MEDS: BROMOCRIPTINE MESYLATE 2.5 MG TAB PO SCH ×2 (09:00→21:16)
[2022-02-04] MEDS: lisinopril 5 MG TAB PO SCH (09:00)
--- NOTE | 2022-02-04 14:57 | Surgery Progress Note ---
Date of Service February 04, 2022 Assessment & Plan (1) Sepsis: Plan: 71-year-old man with history of gallstone pancreatitis s/p ERCP and biliary stent placement x 2 in November at outside hospital with subsequent development of pancreatic pseudocyst, sepsis, and cholecystitis. He presented again to hospital with sepsis and findings show evidence of acute cholecystitis. He has undergo cardiac work-up including cardiac catheterization on 02/03/2022 which was unremarkable. His blood cultures are positive with Enterococcus. Plan: Will plan to take patient to operating tomorrow for laparoscopic cholecystectomy Dr. Mcadams to discuss surgery and obtain informed consent with patient later today or tomorrow preoperatively Okay for diet today NPO after midnight Continue IV Zosyn and IV Vancomycin Dr. Mcadams has seen and examined pt, agrees with above. Admission and Anticipated Discharge Date Admission Date: February 01, 2022 Subjective had some right upper abdominal pain after eating breakfast this am and then self resolved no nausea or vomiting fever last evening no chest pain or shortness of breath Physical Exam Constitutional: WD/WN, vitals as above no acute distress and not ill appearing Neck: normal visual inspection and trachea midline Respiratory: normal respiratory effort; no respiratory distress Skin: no rashes, warm and dry Psychiatric: A+Ox3, euthymic affect Results & Data ([facility]) Vital Signs (Past 12 Hours) Vital Signs Temp Pulse Pulse Resp BP BP Pulse Ox 02/04/22 12:06 36.9 C 84 16 148/73 H 97 02/04/22 11:59 69 02/04/22 07:58 37.0 C 64 18 110/73 96 02/04/22 07:13 69 02/04/22 03:47 37.5 C 71 18 160/93 H 94 Laboratory Results 02/04/22 02/04/22 02/04/22 Range/Units 06:00 06:00 06:00 WBC 10.50 (4.8-10.8) K/uL RBC 3.97 L (4.7-6.1) M/uL Hgb 11.5 L (14.0-18.0) g/dL Hct 34.3 L (42-52) % MCV 86.4 (80-100) fL MCH 29.0 (25-34) pg MCHC 33.5 (32-36) g/dL RDW Std Deviation 43.7 (36.4-46.3) fL RDW Coeff of [place] 13.7 (11.5-14.5) % Plt Count 247 (130-400) K/uL MPV 10.1 (7.4-10.4) fL Immature Gran % (Auto) 0.3 % Neut % (Auto) 70.5 % Lymph % (Auto) 15.6 % [place] % (Auto) 12.5 % Eos % (Auto) 0.9 % Baso % (Auto) 0.2 % Neut # (Auto) 7.41 H (1.4-6.5) K/uL Lymph # (Auto) 1.64 (1.2-3.4) K/uL [place] # (Auto) 1.31 H (0.11-0.59) K/uL Eos # (Auto) 0.09 (0-0.5) K/uL Baso # (Auto) 0.02 (0-0.2) K/uL Immature Gran # (Auto) 0.03 H (0.00-0.02) K/uL APTT 27.4 (21.0-31.0) Seconds PTT Ratio 1.0 Sodium 137 (136-145) mmol/L Potassium 4.0 (3.5-5.1) mmol/L Chloride 103 (98-107) mmol/L Carbon Dioxide 29 (21-32) mmol/L Anion Gap 5 (3-11) BUN 9 (6-23) mg/dl Creatinine 0.86 (0.6-1.4) mg/dl Est Cr Clr Drug Dosing 98.8 ml/min Est GFR ( Amer) 99.7 ml/min Est GFR (Non-Af Amer) 86.0 ml/min BUN/Creatinine Ratio 10.5 (10-20) Glucose 112 H (70-99(Fasting)) mg/dl Calcium 8.2 L (8.5-10.1) mg/dl Total Bilirubin 1.0 (0.2-1.0) mg/dl AST 25 (13-39) U/L ALT 49 (7-52) U/L Alkaline Phosphatase 83 (34-104) U/L Total Protein 5.6 L (6.0-8.3) gm/dl Albumin 3.1 L (3.4-5.0) gm/dl Globulin 2.5 (2.5-4.0) gm/dl Albumin/Globulin Ratio 1.2 (0.9-2)
--- NOTE | 2022-02-04 17:06 | Anesthesiology Consultation ---
Date of Service February 04, 2022 Assessment & Plan Chart Review Chart Review: Acceptable Risk for Surgery and Patient NOT seen in Pre Admission Testing Consults Requested none ASA ASA4 Proposed Anesthesia Anesthesia Type: General History Surgery Operation Date: 02/02/22 12:00 Proposed Procedures p Laparoscopic Cholecystectomy - Apolonia Varma MD Operation Date: 02/03/22 11:00 Proposed Procedures p Cardiac Cath Procedure - Elliot Lima MD Operation Date: 02/05/22 09:10 Proposed Procedures p Laparoscopic Cholecystectomy - Chucky Mcadams MD Height/Weight Height: 6 ft Weight: 111.9 kg Allergies Allergy/AdvReac Type Severity Reaction Status Date / Time No Known Allergies Allergy Unverified 02/01/22 09:17 Medications Home Medications Medication Instructions Recorded Confirmed Last Taken bromocriptine 5 mg capsule 5 mg PO BID 02/01/22 02/01/22 01/31/22 lisinopril 5 mg tablet 5 mg PO QAM 02/01/22 02/01/22 01/31/22 Active Medications Generic Name Dose Route Start Last Admin Trade Name Freq PRN Reason Stop Dose Admin Acetaminophen 650 mg 02/02/22 20:28 02/02/22 20:59 Acetaminophen 325 Mg Tab PO 03/04/22 20:27 650 mg Q4H PRN Administration Pain or Fever Bromocriptine Mesylate 5 mg 02/04/22 09:00 02/04/22 09:00 Bromocriptine Mesylate 2.5 Mg Tab PO 03/06/22 08:59 5 mg BID JAMES Administration Piperacillin Sod/Tazobactam 120 mls @ 30 mls/hr 02/01/22 12:00 02/04/22 15:51 Sod 4.5 gm/ Dextrose IV 02/11/22 11:59 Infused Q8H JAMES Infusion Protocol Vancomycin HCl 1,250 mg/ 275 mls @ 200 mls/hr 02/04/22 02:00 02/04/22 16:25 Sodium Chloride IV 02/18/22 01:59 Infused Q12H JAMES Infusion Lisinopril 5 mg 02/04/22 09:00 02/04/22 09:00 Lisinopril 5 Mg Tab PO 03/06/22 08:59 5 mg QAM JAMES Administration Past Medical History Medical History Acute pancreatitis Essential hypertension Gallstone pancreatitis Neuropathy Pancreatic pseudocyst Pituitary macroadenoma Prolactinoma Exercise / Class Metabolic Activity III < 4 Walking/Shop/Light housework Past Surgical History Surgical History History of hernia repair Past Anesthesia History No Hx of Anesthesia Complications and No Family Hx of Anesthesia Complications History of PONV No Hx of PONV and No Hx of Motion Sickness Social History Smoking Status: Never smoker Hx Alcohol Use: No Hx Substance Use: No substance use type: does not use Physical Exam Vital Signs Last Vital Signs Temp 36.7 C 02/04/22 16:00 Pulse 76 02/04/22 16:00 Resp 16 02/04/22 16:00 BP 141/72 H 02/04/22 16:00 Pulse Ox 93 02/04/22 16:00 Testing Laboratory Results 02/04/22 06:00 02/04/22 06:00 PT 12.6 Seconds (9.0-12.0) H 02/01/22 05:40 INR 1.2 (0.9-1.1) H 02/01/22 05:40 APTT 27.4 Seconds (21.0-31.0) 02/04/22 06:00 Hemoglobin A1c 5.5 % (4.5-5.6) 02/02/22 06:18 Urine Color Yellow 02/01/22 06:15 Urine Appearance Clear (Clear) 02/01/22 06:15 Urine pH 8.0 (4.5-7.5) H 02/01/22 06:15 Ur Specific [place] 1.015 (1.000-1.030) 02/01/22 06:15 Urine Protein 3+ (Negative) H 02/01/22 06:15 Urine Glucose (UA) Trace (Negative) H 02/01/22 06:15 Urine Ketones Trace (Negative) H 02/01/22 06:15 Urine Nitrite Negative (Negative) 02/01/22 06:15 Ur Leukocyte Esterase Negative (Negative) 02/01/22 06:15 Urine WBC (Auto) 5-10 /hpf (0-5) H 02/01/22 06:15 Urine RBC (Auto) 0-4 /hpf (0-4) 02/01/22 06:15 U Hyaline Cast (Auto) 5-10 /lpf (0-5) H 02/01/22 06:15 U Epithel Cells (Auto) >30 /lpf (0-5) H 02/01/22 06:15 Urine Bacteria (Auto) Negative (Negative) 02/01/22 06:15 02/03/22 07:24 Aerobic Blood Culture - Preliminary Blood No growth in Aerobic bottle after 24 hours. Anaerobic Blood Culture - Preliminary No growth in Anaerobic bottle after 24 hours. 02/03/22 07:32 Aerobic Blood Culture - Preliminary Blood No growth in Aerobic bottle after 24 hours. Anaerobic Blood Culture - Preliminary No growth in Anaerobic bottle after 24 hours. 02/01/22 05:40 Aerobic Blood Culture - Preliminary Blood Enterococcus faecium Anaerobic Blood Culture - Preliminary No growth in Anaerobic bottle after 48 hours. 02/01/22 06:00 Aerobic Blood Culture - Preliminary Blood No growth in Aerobic bottle after 48 hours. Anaerobic Blood Culture - Preliminary No growth in Anaerobic bottle after 48 hours. Electrocardiogram Date: 02/01/22 Findings: + NSR @ (71) Chest X-Ray Date: 02/01/22 Findings: + atelectasis (left base) and + cardiomegaly (mild) Echocardiogram Date: 02/01/22 EF: 45% LV Function: dysfunctional (mild decrease) RWMA: + hypokinetic (mild global) Other Findings: + atrial enlargement (LA mildly dilated) Valvular Disease: + AI (mild) TR-mild Cardiac Catheterization Date: 02/03/22 Findings: no RCA, no LMA (nl), no valve disease or no LCX Intervention: + none
--- NOTE | 2022-02-04 20:02 | Hospitalist Progress Note ---
Date of Service February 04, 2022 Assessment & Plan (1) Sepsis: Plan: SIRS criteria met - elevated HR and WBC RUQ pain remains on exam, recurred after advancing diet yesterday - suspect infection of cholecystitis vs. cholangitis Continue Zosyn pending blood culture results - currently 1/4 with enterococcus faecium - presumed true infection. Repeat blood cultures drawn this morning Consult gastroenterology - no need for MRCP/ERCP Consult surgery - recommending cholecystectomy . will be completed tomorrow cardio completed workup. (2) Bacteremia: Plan: Enterococcus faecium growing in 1/2 blood culture. Repeat blood cultures this morning to make sure he is clearing this. Add vancomycin to med regimen Consult infectious disease ?add gentamicin for synergistic coverage (3) Elevated troponin: Plan: Low suspicion of ACS however troponin initially performed due to diaphoresis out of proportion to other findings on admission Suspect demand ischemia in setting of cholecystitis with probably underlying mod-severe CAD LDL 31 - will continue on atorvastatin 40 mg PO pending cardiac cath Started on metoprolol tartrate 25mg PO BID Continue low dose heparin IV drip ASA 81mg PO daily (4) Essential hypertension: Plan: Hold lisinopril Continue metoprolol as above (5) Pancreatic pseudocyst: Plan: Appears to be stable based on comparison of reports from prior imaging. Plan: VTE Prophylaxis - heparin IV Diet - NPO pending cardiac cath, can advance to low fat, heart healthy diet follow this Disposition - continue on med/tele Admission and Anticipated Discharge Date Admission Date: February 01, 2022 Subjective Patient reports no new symptom Review of Systems Review of Systems: All systems reviewed & are unremarkable except as noted in HPI & below Physical Exam Constitutional: WD/WN, vitals as above Eyes: + anicteric sclerae; normal pupil size Respiratory: normal respiratory effort, lungs clear to auscultation Cardiovascular: RRR, no murmur, no edema Gastrointestinal (Abdomen): Inspection/Auscultation: normal bowel sounds Percussion/Palpation: + abdomen tender (mild RUQ pain on inspiration) and abdomen soft; no guarding and abdomen not rigid Musculoskeletal: no cyanosis or clubbing, extremities motor strength 5/5 Skin: no rashes, warm and dry Neurologic: moves all extremities and awake; not confused Psychiatric: A+Ox3, euthymic affect Genitourinary: no CVA tenderness Results & Data Results & Data ([facility]) Vital Signs (Past 12 Hours) Vital Signs Temp Pulse Pulse Resp BP BP Pulse Ox 02/04/22 19:06 37.3 C 72 18 150/87 H 96 02/04/22 16:00 36.7 C 76 16 141/72 H 93 02/04/22 15:39 68 02/04/22 12:06 36.9 C 84 16 148/73 H 97 02/04/22 11:59 69 PG Care Time/CCT Total # of Minutes Spent Total Time Spent with Patient: Total time spent is greater than 50% in coordination of care (as documented) at patient's floor/unit and/or counseling patient: Coding Level of Care Code 02122 Subseq Hosp Care Lvl 2 Diagnoses Sepsis A41.9 Bacteremia R78.81 Elevated troponin R77.8 Essential hypertension I10 Pancreatic pseudocyst K86.3
[2022-02-04] MEDS: ACETAMINOPHEN 325 MG TAB PO PRN (23:04)
[2022-02-05] MEDS: VANCOMYCIN HCL 1,250 MG in SODIUM CHLORIDE 0.9% 250 ML IV SCH (02:27)
[2022-02-05] MEDS: PIPERACILLIN/TAZOBACTAM 4.5 GM in DEXTROSE 5% 100 ML IV SCH (03:57)
[2022-02-05 07:05] LABS: Basophils # (auto) 0.03 K/uL (0-0.2); Basophils % (auto) 0.5 %; Eosinophils # (auto) 0.13 K/uL (0-0.5); Hematocrit (blood only) 34.6 % (42-52); Hemoglobin 11.5 g/dL (14.0-18.0); Immature Granulocytes # (auto) 0.03 K/uL (0.00-0.02); Immature Granulocytes % (auto) 0.5 %; Lymphocytes # (auto) 1.37 K/uL (1.2-3.4); Lymphocytes % (auto) 21.3 %; Mean Corpuscular Hemoglobin 28.8 pg (25-34); Mean Corpuscular Hgb Conc 33.2 g/dL (32-36); Mean Corpuscular Volume 86.7 fL (80-100); Mean Platelet Volume 10.3 fL (7.4-10.4); Monocytes # (auto) 0.64 K/uL (0.11-0.59); Neutrophils # (auto) 4.22 K/uL (1.4-6.5); Neutrophils % (auto) 65.7 %; Platelet Count 243 K/uL (130-400); RDW Coefficient of Variation 13.5 % (11.5-14.5); RDW Standard Deviation 42.9 fL (36.4-46.3); Red Blood Count 3.99 M/uL (4.7-6.1); White Blood Count 6.42 K/uL (4.8-10.8)
[2022-02-05 07:21] LABS: Albumin Globulin Ratio 1.2 (0.9-2); BUN Creatinine Ratio 11.3 (10-20); Bilirubin,Total 0.7 mg/dl (0.2-1.0); Calcium 8.5 mg/dl (8.5-10.1); Creatinine Clr Calc Pharmacy 119.3 ml/min; Est GFR (African American) 107.9 ml/min; Est GFR (Non-African American) 93.1 ml/min; Globulin 2.6 gm/dl (2.5-4.0); Potassium 3.6 mmol/L (3.5-5.1); Total Protein 5.6 gm/dl (6.0-8.3)
[2022-02-05 07:39] LABS: Partial Thromboplastin Ratio 0.9; Partial Thromboplastin Time 26.1 Seconds (21.0-31.0)
[2022-02-05] MEDS ORDERED: MIDAZOLAM HCL 1 MG/ML 2ML VIAL ONE (09:08)
[2022-02-05] MEDS ORDERED: fentaNYL citrate 100 MCG/2 ML VIAL ONE ×3 (09:08→13:30)
--- NOTE | 2022-02-05 09:44 | History & Physical Bridge Note ---
Date of Service February 05, 2022 History & Physical Bridge Note I have examined the patient, reviewed the History & Physical and in the interval since the performance of the History & Physical I have noted the following changes of clinical significance: no changes noted
[2022-02-05] MEDS ORDERED: ceFAZolin 2000MG 2,000 MG/15 ML SYR IV ONE (10:00)
[2022-02-05] MEDS ORDERED: fentaNYL citrate 100 MCG/2 ML VIAL IV PRN (10:03)
[2022-02-05] MEDS ORDERED: ePHEDrine sulfate 50 MG/ML AMP IV PRN (10:03)
[2022-02-05] MEDS ORDERED: ATROPINE SULFATE 0.1 MG/ML 10ML SYR IV PRN (10:03)
[2022-02-05] MEDS ORDERED: ONDANSETRON INJ 2 MG/ML 2 ML VIAL IV PRN (10:03)
[2022-02-05] MEDS ORDERED: HYDROmorphone INJ 1 MG/ML SYRINGE IV PRN (10:03)
[2022-02-05] MEDS ORDERED: LIDOCAINE 1% LOCAL 20 ML VIAL ONE (10:47)
[2022-02-05] MEDS ORDERED: BUPIVACAINE 0.5 % 5 MG/1 ML MPF 30ML VIAL ONE (10:47)
[2022-02-05] MEDS ORDERED: BACITRACIN OINT 15 GM TUBE ONE (10:48)
[2022-02-05] MEDS ORDERED: NEOSTIGMINE METHYLSULFATE 1 MG/ML 10ML VIAL ONE (13:07)
[2022-02-05] MEDS ORDERED: GLYCOPYRROLATE 0.2 MG/ML VIAL ONE ×2 (13:07→13:32)
[2022-02-05] MEDS ORDERED: ROCURONIUM BROMIDE 10 MG/ML 5 ML VIAL IV ONE (13:07)
--- NOTE | 2022-02-05 13:23 | Post Operative Brief Note ---
Immediate Post Op Note v1 Date of Surgery February 05, 2022 Pre & Post Diagnosis Operation Date: 02/02/22 12:00 <No data on this case meets the specified criteria> Operation Date: 02/03/22 11:00 <No data on this case meets the specified criteria> Operation Date: 02/05/22 09:10 Pre-Op Diagnosis: acute cholecystitis, cholelithiasis Post-Op Diagnosis: acute cholecystitis, cholelithiasis I identified the patient and participated in the time-out.: Yes Procedure Operation Date: 02/02/22 12:00 <No data on this case meets the specified criteria> Operation Date: 02/03/22 11:00 Actual Procedures s Cineradiography w/Routine Exam - Elliot Lima MD p Cath, Left with Cors and Vent - Elliot Lima MD Operation Date: 02/05/22 09:10 Actual Procedures p Laparoscopic subtotal Cholecystectomy - Chucky Mcadams MD Surgeon Chucky Mcadams MD Steel Box Toe Inserter LASHANDA Fitzgerald Estimated Blood Loss 100 Findings Consistent with Post-Op Diagnosis significant inflammation on gallbladder wall, Fluids 1000ml Specimens gallbladder Drains Pola-Mason Drain Anesthesia Type General Complications none Disposition Accompanied Patient To Recovery: Yes
[2022-02-05] MEDS ORDERED: VANCOMYCIN TROUGH ONE (13:30)
--- NOTE | 2022-02-05 15:06 | Anesthesiology Progress Note ---
Date of Service February 05, 2022 Anesthesia Post Procedure Vital Signs Vital Signs: Temp Pulse Pulse Pulse Resp BP BP 02/05/22 14:40 54 L 17 125/78 02/05/22 14:30 55 L 18 138/79 02/05/22 14:20 36.2 C L 51 L 19 127/72 02/05/22 14:10 59 L 21 120/73 02/05/22 14:00 63 16 132/77 02/05/22 13:50 64 20 123/72 02/05/22 13:43 36.1 C L 66 18 121/69 02/05/22 08:56 37.1 C 66 18 136/78 02/05/22 08:00 59 L 02/05/22 07:03 36.9 C 55 L 18 115/67 02/05/22 02:48 36.7 C 58 L 18 124/78 02/04/22 23:00 76 02/04/22 22:59 37.9 C H 75 18 128/72 02/04/22 19:06 37.3 C 72 18 150/87 H 02/04/22 16:00 36.7 C 76 16 141/72 H 02/04/22 15:39 68 Pulse Ox 02/05/22 14:40 95 02/05/22 14:30 94 02/05/22 14:20 96 02/05/22 14:10 93 02/05/22 14:00 98 02/05/22 13:50 97 02/05/22 13:43 95 02/05/22 08:56 94 02/05/22 08:00 02/05/22 07:03 93 02/05/22 02:48 94 02/04/22 23:00 02/04/22 22:59 94 02/04/22 19:06 96 02/04/22 16:00 93 02/04/22 15:39 Pain Intensity Right Abdomen: Pain Intensity: 3 Transfer of Care Handoff Completed per policy Notes Mental Status: alert / awake / arousable and participated in evaluation Patient Amnestic to Procedure: Yes Nausea / Vomiting: adequately controlled Pain: adequately controlled Airway Patency, RR, SpO2: stable & adequate BP & HR: stable & adequate Hydration State: stable & adequate Anesthetic Complications: no major complications apparent and Pt Satisfied with anesthetic care
[2022-02-05] MEDS: BROMOCRIPTINE MESYLATE 2.5 MG TAB PO SCH ×2 (16:10→20:32)
[2022-02-05] MEDS: PIPERACILLIN/TAZOBACTAM 3.375 GM in DEXTROSE 5% 100 ML IV SCH ×2 (16:15→20:31)
[2022-02-05] MEDS: lisinopril 5 MG TAB PO SCH (16:16)
[2022-02-05] MEDS ORDERED: MoRPHine SULFATE 2 MG/ML CARP IM PRN (16:37)
[2022-02-05] MEDS ORDERED: oxyCODONE/ACETAMINOPHEN 5mg/325mg TAB PO PRN ×2 (16:37)
[2022-02-05] MEDS ORDERED: MoRPHine SULFATE 4 MG/ML 1 ML CARP\\VIAL IV PRN (16:37)
--- NOTE | 2022-02-05 21:01 | Hospitalist Progress Note ---
Date of Service February 05, 2022 Assessment & Plan (1) Sepsis: Plan: SIRS criteria met - elevated HR and WBC RUQ pain remains on exam, recurred after advancing diet yesterday - suspect infection of cholecystitis vs. cholangitis Continue Zosyn pending blood culture results - currently 1/4 with enterococcus faecium - presumed true infection. Repeat blood cultures drawn this morning Consult gastroenterology - no need for MRCP/ERCP Consult surgery - S/P cholecystectomy today will need 2 weeks of antibiotics. will obtain U/S peripheral line. will discuss with case management (2) Bacteremia: Plan: Enterococcus faecium growing in 1/2 blood culture. Repeat blood cultures this morning to make sure he is clearing this. Add vancomycin to med regimen Consult infectious disease: appreciate input. (3) Elevated troponin: Plan: Low suspicion of ACS however troponin initially performed due to diaphoresis out of proportion to other findings on admission Suspect demand ischemia in setting of cholecystitis with probably underlying mod-severe CAD LDL 31 - will continue on atorvastatin 40 mg PO pending cardiac cath Started on metoprolol tartrate 25mg PO BID Continue low dose heparin IV drip ASA 81mg PO daily (4) Essential hypertension: Plan: Hold lisinopril Continue metoprolol as above (5) Pancreatic pseudocyst: Plan: Appears to be stable based on comparison of reports from prior imaging. Plan: VTE Prophylaxis - heparin IV Diet - NPO pending cardiac cath, can advance to low fat, heart healthy diet follow this Disposition - continue on med/tele Admission and Anticipated Discharge Date Admission Date: February 01, 2022 Subjective Patient reports pain in the area near incision. Review of Systems Review of Systems: All systems reviewed & are unremarkable except as noted in HPI & below Physical Exam Constitutional: WD/WN, vitals as above Eyes: + anicteric sclerae; normal pupil size Respiratory: normal respiratory effort, lungs clear to auscultation Cardiovascular: RRR, no murmur, no edema Gastrointestinal (Abdomen): Inspection/Auscultation: normal bowel sounds Percussion/Palpation: abdomen soft; no guarding and abdomen not rigid Musculoskeletal: no cyanosis or clubbing, extremities motor strength 5/5 Skin: no rashes, warm and dry Neurologic: moves all extremities and awake; not confused Psychiatric: A+Ox3, euthymic affect Genitourinary: no CVA tenderness Results & Data Results & Data ([facility]) Vital Signs (Past 12 Hours) Vital Signs Temp Pulse Pulse Resp BP Pulse Ox 02/05/22 19:01 36.9 C 63 18 142/84 H 95 02/05/22 16:17 36.5 C 65 18 130/83 96 02/05/22 15:45 36.7 C 60 18 154/82 H 94 02/05/22 15:05 36.8 C 55 L 20 142/83 H 93 02/05/22 14:40 54 L 17 125/78 95 02/05/22 14:30 55 L 18 138/79 94 02/05/22 14:20 36.2 C L 51 L 19 127/72 96 02/05/22 14:10 59 L 21 120/73 93 02/05/22 14:00 63 16 132/77 98 02/05/22 13:50 64 20 123/72 97 02/05/22 13:43 36.1 C L 66 18 121/69 95 PG Care Time/CCT Total # of Minutes Spent Total Time Spent with Patient: Total time spent is greater than 50% in coordination of care (as documented) at patient's floor/unit and/or counseling patient: Coding Level of Care Code 72387 Subseq Hosp Care Lvl 2 Diagnoses Sepsis A41.9 Bacteremia R78.81 Elevated troponin R77.8 Essential hypertension I10 Pancreatic pseudocyst K86.3
[2022-02-06] MEDS: PIPERACILLIN/TAZOBACTAM 3.375 GM in DEXTROSE 5% 100 ML IV SCH ×3 (04:39→20:14)
--- NOTE | 2022-02-06 05:14 | Operative Report (OR) ---
DATE OF PROCEDURE: 02/05/2022 PREOPERATIVE DIAGNOSES: Acute cholecystitis, cholelithiasis. POSTOPERATIVE DIAGNOSES: Acute cholecystitis, cholelithiasis. OPERATION: Laparoscopic subtotal cholecystectomy. SURGEON: Chucky Mcadams MD. NIGHT WAREHOUSE MANAGER: LASHANDA Fitzgerald. ANESTHESIA: General. ESTIMATED BLOOD LOSS: About 100 mL. FINDINGS: Significant inflammation on the gallbladder wall. Acute cholecystitis, cholelithiasis with multiple small gallstones. COMPLICATIONS: None. INDICATIONS FOR THE PROCEDURE: This is a 71-year-old gentleman who was admitted to the hospital for acute cholecystitis, cholelithiasis and I recommended to do laparoscopic cholecystectomy, possible op en, possible cholangiogram. I did talk to the patient about the benefit, risk, alternate procedure. I indicated the risks may include, but not limited to, such as bleeding, infection, injury to other organs, sepsis, bile leak, may need ERCP, possible subtotal cholecystectomy if significant inflammati on on the gallbladder wall, myocardial infarction, DVT, stroke, even . The patient understands. He signed informed consent and I answered all questions. DETAILS OF PROCEDURE: After we identified the patient and verified the procedure, we brought the pat ient to the OR, put the patient in the supine position on the OR table. The patient received SCD on bilateral legs to prevent DVT. Also, the patient received 2 grams of Ancef IV for prophylactic antib iotic. The patient received general anesthesia without difficulty. The abdomen was prepped and drap ed in routine sterile fashion. After timeout, I injected the local anesthesia by using 1% lidocaine mixed with 0.5% Marcaine just above the umbilicus, then I made a small incision just above umbilicus, opened fascia, opened peritoneum. Under direct vision, put a Mattie trocar in, connected to CO2 to create pneumoperitoneum, flow rate at 6 liters per minute, pressure not more than 14 mmHg. Once we got a nice pneumoperitoneum, we found the patient had the significant inflammation on the who le gallbladder, significant distention. At this moment, we put another two 5 mm trocars on the right upper quadrant, one was a 12 trocar in the epigastric area. Once all trocars in, we used a large nee dle, decompressed the gallbladder first and then we used grasper to hold the base of gallbladder, put in the direction to the diaphragm. We tried to expose the triangle of Calot; however, due to the si gnificant inflammation on the whole gallbladder, it is difficult to identify the cystic duct. At thi s moment, I decided to use a top-down technique to take down gallbladder near the cystic duct. I use d the Endo-JANICE stapler for transection on the gallbladder near the cystic duct and then we used the H armonic and opened a remaining small part of the gallbladder. There were some small gallstones, we r emoved all the gallstones one by one, put in a catch bag, confirmed no gallstones on the remaining sm all piece of gallbladder. Then, I used Endoloop to close the gallbladder near the cystic duct; reche cked, no bile leak and no active bleeding. Then, we removed gallbladder and gallstone through the ca tch bag. Then, we reinserted the Mattie trocar in, connected to CO2 to create pneumoperitoneum, again looked a round the liver. No active bleeding, no bile leak and at this moment, based on significant inflammat ion, we decided to put one 10 mm ARNOLDO drainage on the gallbladder fossa. We used a 3-0 nylon to fix a J P on the skin. Then, we removed all the trocars under direct vision. No active bleeding from the tr ocar site. Pneumoperitoneum was released, then I closed the umbilical incision fascial layer by usin g 0 Vicryl [id number] x2, closed the subcutaneous layer by using 2-0 Vicryl interruptedly, close d skin by using 4-0 Vicryl continuous running, closed the epigastric incision fascial layer by using 0 Vicryl [id number] x2, closed subcutaneous layer by using 2-0 Vicryl interruptedly, closed the skin by using 4-0 Vicryl continuous running, closed another two 5 mm trocar site of skin only by usin g 4-0 Vicryl. Then, we put the dressing on. The patient tolerated the procedure well. All instrume nt, needle and sponge counts were correct x2 at the end of the case. The patient was transferred to recovery room in stable condition. The specimen was sent to pathology. The service assistant, Sera Morales was necessary for this procedure. Her role was to hold the camer a, exposure, retraction. Job ID: [id number]
[2022-02-06 06:20] LABS: Basophils # (auto) 0.01 K/uL (0-0.2); Basophils % (auto) 0.1 %; Hematocrit (blood only) 35.9 % (42-52); Hemoglobin 12.3 g/dL (14.0-18.0); Immature Granulocytes # (auto) 0.04 K/uL (0.00-0.02); Immature Granulocytes % (auto) 0.4 %; Lymphocytes # (auto) 1.05 K/uL (1.2-3.4); Lymphocytes % (auto) 9.8 %; Mean Corpuscular Hemoglobin 29.4 pg (25-34); Mean Corpuscular Hgb Conc 34.3 g/dL (32-36); Mean Corpuscular Volume 85.7 fL (80-100); Mean Platelet Volume 10.6 fL (7.4-10.4); Monocytes # (auto) 0.96 K/uL (0.11-0.59); Neutrophils # (auto) 8.64 K/uL (1.4-6.5); Neutrophils % (auto) 80.7 %; Platelet Count 312 K/uL (130-400); RDW Coefficient of Variation 13.5 % (11.5-14.5); RDW Standard Deviation 42.6 fL (36.4-46.3); Red Blood Count 4.19 M/uL (4.7-6.1)
[2022-02-06 07:01] LABS: Albumin Globulin Ratio 1.1 (0.9-2); Albumin Level 3.2 gm/dl (3.4-5.0); BUN Creatinine Ratio 14.7 (10-20); Bilirubin,Total 0.5 mg/dl (0.2-1.0); Calcium 8.7 mg/dl (8.5-10.1); Est GFR (African American) 105.5 ml/min; Globulin 2.9 gm/dl (2.5-4.0); Potassium 4.1 mmol/L (3.5-5.1); Total Protein 6.1 gm/dl (6.0-8.3)
[2022-02-06] MEDS: lisinopril 5 MG TAB PO SCH (08:04)
[2022-02-06] MEDS: BROMOCRIPTINE MESYLATE 2.5 MG TAB PO SCH ×2 (08:04→20:15)
[2022-02-06] MEDS ORDERED: POLYETHYLENE (MIRALAX) 17 GM PACK PO PRN (10:26)
--- NOTE | 2022-02-06 12:57 | Surgery Progress Note ---
Date of Service February 06, 2022 Assessment & Plan (1) Sepsis: (2) Cholecystitis: (3) Bacteremia: Plan: POD # 1 s/p laparoscopic subtotal cholecystectomy - afebrile, vss - no leukocytosis - abdominal pain minimal - hebert with bloody serosanguineous output - t. bili/lfts wnl Plan: Continue pain management as needed continue IV abx per ID recommendations continue low fat diet continue hebert drain to bulb suction, will go home with drain encouraged ambulation and oob to chair incentive spirometry repeat am labs will continue to follow Dr. Mcadams was present during my examination and agrees with above. Admission and Anticipated Discharge Date Admission Date: February 01, 2022 Subjective feeling much better today minimal abdominal pain no n/v tolerated clear liquids urinating without difficulty states he talked with infectious disease who recommend two weeks of antibiotics Physical Exam Constitutional: WD/WN, vitals as above + obese; no acute distress and not ill appearing Neck: normal visual inspection and trachea midline Respiratory: normal respiratory effort; no respiratory distress, no labored breathing and no retractions Gastrointestinal (Abdomen): Inspection/Auscultation: abdomen normal to inspection, + abdominal surgical incision (covered with dry intact dressings), + abdominal surgical drain present (bloody serosanguneous) and + hypoactive bowel sounds; abdomen not distended Percussion/Palpation: abdomen soft; abdomen nontender, no guarding and abdomen not rigid Skin: no rashes, warm and dry Psychiatric: Orientation: alert and oriented x 3 Results & Data ([facility]) Vital Signs (Past 12 Hours) Vital Signs Temp Pulse Pulse Resp BP Pulse Ox 02/06/22 11:05 36.7 C 54 L 18 138/81 91 02/06/22 08:00 53 L 02/06/22 07:29 36.6 C 57 L 18 142/77 H 93 02/06/22 02:52 36.8 C 55 L 18 122/74 94 Laboratory Results 02/06/22 02/06/22 Range/Units 05:44 05:44 WBC 10.70 (4.8-10.8) K/uL RBC 4.19 L (4.7-6.1) M/uL Hgb 12.3 L (14.0-18.0) g/dL Hct 35.9 L (42-52) % MCV 85.7 (80-100) fL MCH 29.4 (25-34) pg MCHC 34.3 (32-36) g/dL RDW Std Deviation 42.6 (36.4-46.3) fL RDW Coeff of Delmar 13.5 (11.5-14.5) % Plt Count 312 (130-400) K/uL MPV 10.6 H (7.4-10.4) fL Immature Gran % (Auto) 0.4 % Neut % (Auto) 80.7 % Lymph % (Auto) 9.8 % Terry % (Auto) 9.0 % Eos % (Auto) 0.0 % Baso % (Auto) 0.1 % Neut # (Auto) 8.64 H (1.4-6.5) K/uL Lymph # (Auto) 1.05 L (1.2-3.4) K/uL Terry # (Auto) 0.96 H (0.11-0.59) K/uL Eos # (Auto) 0.00 (0-0.5) K/uL Baso # (Auto) 0.01 (0-0.2) K/uL Immature Gran # (Auto) 0.04 H (0.00-0.02) K/uL Sodium 135 L (136-145) mmol/L Potassium 4.1 (3.5-5.1) mmol/L Chloride 102 (98-107) mmol/L Carbon Dioxide 26 (21-32) mmol/L Anion Gap 7 (3-11) BUN 11 (6-23) mg/dl Creatinine 0.75 (0.6-1.4) mg/dl Est Cr Clr Drug Dosing 113.0 ml/min Est GFR ( Amer) 105.5 ml/min Est GFR (Non-Af Amer) 91.0 ml/min BUN/Creatinine Ratio 14.7 (10-20) Glucose 129 H (70-99(Fasting)) mg/dl Calcium 8.7 (8.5-10.1) mg/dl Total Bilirubin 0.5 (0.2-1.0) mg/dl AST 17 (13-39) U/L ALT 37 (7-52) U/L Alkaline Phosphatase 84 (34-104) U/L Total Protein 6.1 (6.0-8.3) gm/dl Albumin 3.2 L (3.4-5.0) gm/dl Globulin 2.9 (2.5-4.0) gm/dl Albumin/Globulin Ratio 1.1 (0.9-2)
--- NOTE | 2022-02-06 16:49 | XCELERA ---
[id number]
--- NOTE | 2022-02-06 20:51 | Hospitalist Progress Note ---
Date of Service February 06, 2022 Assessment & Plan (1) Sepsis: Plan: SIRS criteria met - elevated HR and WBC RUQ pain remains on exam, recurred after advancing diet yesterday - suspect infection of cholecystitis vs. cholangitis Continue Zosyn blood culture results - currently 11/19 with enterococcus faecium - presumed true infection. Repeat blood cultures drawn this morning Consult gastroenterology - no need for MRCP/ERCP Consult surgery - S/P cholecystectomy today will need 2 weeks of antibiotics: zosyn after surgery. will obtain U/S peripheral line on 01/10. plan to discharge on 01/11 as son will be available. case management aware of plan. last day of antibiotics DAY 02/19 (2) Bacteremia: Plan: Enterococcus faecium growing in 11/17 blood culture. Repeat blood cultures this morning to make sure he is clearing this. Add vancomycin to med regimen Consult infectious disease: appreciate input. (3) Elevated troponin: Plan: Low suspicion of ACS however troponin initially performed due to diaphoresis out of proportion to other findings on admission Suspect demand ischemia in setting of cholecystitis with probably underlying mod-severe CAD LDL 31 - will continue on atorvastatin 40 mg PO pending cardiac cath Started on metoprolol tartrate 25mg PO BID heparin rip has been discontinued. ASA 81mg PO daily (4) Essential hypertension: Plan: Hold lisinopril Continue metoprolol as above (5) Pancreatic pseudocyst: Plan: Appears to be stable based on comparison of reports from prior imaging. Plan: VTE Prophylaxis - heparin scd knee Disposition - Discharge on 02/08 as Son will be available for support on Thursday. Admission and Anticipated Discharge Date Admission Date: February 01, 2022 Subjective Patient reports his abdominal pain has improved. Patient ambulating better. Review of Systems Review of Systems: All systems reviewed & are unremarkable except as noted in HPI & below Physical Exam Constitutional: WD/WN, vitals as above Eyes: + anicteric sclerae; normal pupil size Respiratory: normal respiratory effort, lungs clear to auscultation Cardiovascular: RRR, no murmur, no edema Gastrointestinal (Abdomen): Inspection/Auscultation: normal bowel sounds Percussion/Palpation: abdomen soft; no guarding and abdomen not rigid Musculoskeletal: no cyanosis or clubbing, extremities motor strength 5/5 Skin: no rashes, warm and dry Neurologic: moves all extremities and awake; not confused Psychiatric: A+Ox3, euthymic affect Genitourinary: no CVA tenderness Results & Data Results & Data ([facility]) Vital Signs (Past 12 Hours) Vital Signs Temp Pulse Pulse Resp BP BP Pulse Ox 02/06/22 19:47 36.8 C 60 18 132/79 94 02/06/22 15:26 56 L 02/06/22 11:05 36.7 C 54 L 18 138/81 91 PG Care Time/CCT Total # of Minutes Spent Total Time Spent with Patient: Total time spent is greater than 50% in coordination of care (as documented) at patient's floor/unit and/or counseling patient: Coding Level of Care Code 91363 Subseq Hosp Care Lvl 2 Diagnoses Sepsis A41.9 Bacteremia R78.81 Elevated troponin R77.8 Essential hypertension I10 Pancreatic pseudocyst K86.3
[2022-02-07] MEDS: PIPERACILLIN/TAZOBACTAM 3.375 GM in DEXTROSE 5% 100 ML IV SCH ×2 (03:12→12:12)
[2022-02-07 07:34] LABS: Basophils # (auto) 0.06 K/uL (0-0.2); Basophils % (auto) 0.7 %; Eosinophils # (auto) 0.07 K/uL (0-0.5); Eosinophils % (auto) 0.8 %; Hematocrit (blood only) 35.4 % (42-52); Hemoglobin 11.6 g/dL (14.0-18.0); Immature Granulocytes # (auto) 0.08 K/uL (0.00-0.02); Lymphocytes # (auto) 2.17 K/uL (1.2-3.4); Mean Corpuscular Hemoglobin 28.6 pg (25-34); Mean Corpuscular Hgb Conc 32.8 g/dL (32-36); Mean Corpuscular Volume 87.4 fL (80-100); Mean Platelet Volume 10.4 fL (7.4-10.4); Monocytes # (auto) 0.86 K/uL (0.11-0.59); Monocytes % (auto) 10.3 %; Neutrophils # (auto) 5.11 K/uL (1.4-6.5); Neutrophils % (auto) 61.2 %; Platelet Count 336 K/uL (130-400); RDW Coefficient of Variation 13.6 % (11.5-14.5); Red Blood Count 4.05 M/uL (4.7-6.1); White Blood Count 8.35 K/uL (4.8-10.8)
[2022-02-07 07:54] LABS: Albumin Globulin Ratio 1.2 (0.9-2); Albumin Level 3.1 gm/dl (3.4-5.0); BUN Creatinine Ratio 13.6 (10-20); Bilirubin,Total 0.5 mg/dl (0.2-1.0); Calcium 8.4 mg/dl (8.5-10.1); Creatinine Clr Calc Pharmacy 104.3 ml/min; Est GFR (African American) 102.2 ml/min; Est GFR (Non-African American) 88.2 ml/min; Globulin 2.6 gm/dl (2.5-4.0); Potassium 3.7 mmol/L (3.5-5.1); Total Protein 5.7 gm/dl (6.0-8.3)
[2022-02-07] MEDS: BROMOCRIPTINE MESYLATE 2.5 MG TAB PO SCH ×2 (09:28→19:47)
[2022-02-07] MEDS: lisinopril 5 MG TAB PO SCH (09:28)
[2022-02-07] MEDS: HEPARIN SOD 5,000 UNIT/0.5 ML VIAL SQ SCH ×2 (09:29→19:49)
--- NOTE | 2022-02-07 12:34 | Surgery Progress Note ---
Date of Service February 07, 2022 Assessment & Plan (1) Sepsis: (2) Cholecystitis: (3) Bacteremia: Plan: POD # 2 s/p laparoscopic subtotal cholecystectomy - afebrile, vss - no leukocytosis - abdominal pain minimal - hebert with serosanguineous output - t. bili/lfts wnl Plan: Continue pain management as needed continue IV abx per ID recommendations continue low fat diet continue hebert drain to bulb suction, will go home with drain, hebert drain teaching prior to discharge encouraged ambulation and oob to chair incentive spirometry needs follow-up with Dr. Mcadams next week for drain assessment Dr. Mcadams has seen and examined patient and agrees with above. Admission and Anticipated Discharge Date Admission Date: February 01, 2022 Subjective feeling very well only having abdominal pain/soreness when bending over ambulating without difficulty tolerating diet, no n/v Physical Exam Constitutional: WD/WN, vitals as above no acute distress and not ill appearing Neck: normal visual inspection and trachea midline Respiratory: normal respiratory effort; no respiratory distress Gastrointestinal (Abdomen): Inspection/Auscultation: abdomen normal to inspection, + abdominal surgical incision (covered with dry dressings) and + abdominal surgical drain present (serosanguineous); abdomen not distended Percussion/Palpation: abdomen soft; abdomen nontender, no guarding and abdomen not rigid Skin: no rashes, warm and dry no jaundice Psychiatric: A+Ox3, euthymic affect Results & Data ([facility]) Vital Signs (Past 12 Hours) Vital Signs Temp Pulse Resp BP Pulse Ox 02/07/22 11:00 36.6 C 72 14 127/77 96 02/07/22 07:58 36.5 C 59 L 17 121/76 95 02/07/22 03:11 36.8 C 65 18 131/82 96 Laboratory Results 02/07/22 02/07/22 Range/Units 07:03 07:03 WBC 8.35 (4.8-10.8) K/uL RBC 4.05 L (4.7-6.1) M/uL Hgb 11.6 L (14.0-18.0) g/dL Hct 35.4 L (42-52) % MCV 87.4 (80-100) fL MCH 28.6 (25-34) pg MCHC 32.8 (32-36) g/dL RDW Std Deviation 44.0 (36.4-46.3) fL RDW Coeff of Delmar 13.6 (11.5-14.5) % Plt Count 336 (130-400) K/uL MPV 10.4 (7.4-10.4) fL Immature Gran % (Auto) 1.0 % Neut % (Auto) 61.2 % Lymph % (Auto) 26.0 % Ferry % (Auto) 10.3 % Eos % (Auto) 0.8 % Baso % (Auto) 0.7 % Neut # (Auto) 5.11 (1.4-6.5) K/uL Lymph # (Auto) 2.17 (1.2-3.4) K/uL Ferry # (Auto) 0.86 H (0.11-0.59) K/uL Eos # (Auto) 0.07 (0-0.5) K/uL Baso # (Auto) 0.06 (0-0.2) K/uL Immature Gran # (Auto) 0.08 H (0.00-0.02) K/uL Sodium 138 (136-145) mmol/L Potassium 3.7 (3.5-5.1) mmol/L Chloride 103 (98-107) mmol/L Carbon Dioxide 28 (21-32) mmol/L Anion Gap 7 (3-11) BUN 11 (6-23) mg/dl Creatinine 0.81 (0.6-1.4) mg/dl Est Cr Clr Drug Dosing 104.3 ml/min Est GFR ( Amer) 102.2 ml/min Est GFR (Non-Af Amer) 88.2 ml/min BUN/Creatinine Ratio 13.6 (10-20) Glucose 112 H (70-99(Fasting)) mg/dl Calcium 8.4 L (8.5-10.1) mg/dl Total Bilirubin 0.5 (0.2-1.0) mg/dl AST 15 (13-39) U/L ALT 29 (7-52) U/L Alkaline Phosphatase 71 (34-104) U/L Total Protein 5.7 L (6.0-8.3) gm/dl Albumin 3.1 L (3.4-5.0) gm/dl Globulin 2.6 (2.5-4.0) gm/dl Albumin/Globulin Ratio 1.2 (0.9-2)
--- NOTE | 2022-02-07 13:54 | Hospitalist Progress Note ---
Date of Service February 07, 2022 Assessment & Plan (1) Sepsis: Plan: #Sepsis secondary to acute cholecystitis Status post subtotal cholecystectomy Patient is currently have a ARNOLDO drain Blood culture positive for Enterococcus Follow-up culture negative Patient has a PICC line Awaiting for ID input for outpatient antibiotic therapy (2) Bacteremia: Plan: Will follow ID recommendation (3) Elevated troponin: Plan: Low suspicion of ACS however troponin initially performed due to diaphoresis out of proportion to other findings on admission Suspect demand ischemia in setting of cholecystitis with probably underlying mod-severe CAD LDL 31 - will continue on atorvastatin 40 mg PO pending cardiac cath Started on metoprolol tartrate 25mg PO BID heparin rip has been discontinued. ASA 81mg PO daily (4) Essential hypertension: Plan: Hold lisinopril Continue metoprolol as above (5) Pancreatic pseudocyst: Plan: Appears to be stable based on comparison of reports from prior imaging. Plan: VTE Prophylaxis - heparin scd knee Disposition - Discharge on 02/08 as Son will be available for support on Thursday. Admission and Anticipated Discharge Date Admission Date: February 01, 2022 Subjective Tolerating oral intake no pain , the plan is to discharge the patient tomorrow, Review of Systems Review of Systems: All 12 organs were reviewed unremarkable unless mentioned above in HPI Physical Exam Physical Exam: The patient is alert and oriented. Mood and affect appeared normal. He answered all questions appropriately. HEENT: Pupils are equal and reactive to light and accommodation. Extraocular movements are intact. The sclerae are anicteric. Neuro: Cranial nerves intact Lungs: Normal respiratory effort Cardiac: Regular rhythm. Pulses: Right wrist with hemo band in place. Constitutional: WD/WN, vitals as above + obese; no acute distress and not ill appearing Eyes: PERRL, conjunctivae normal, anicteric sclerae + anicteric sclerae and EOM intact bilaterally; normal pupil size ENMT: Mouth: + poor dentition and + small oral opening; no TMJ abnormality Mallampati Class: III Neck: normal visual inspection and trachea midline; neck extension not limited Respiratory: normal respiratory effort, lungs clear to auscultation normal respiratory effort; no respiratory distress, no labored breathing and no retractions Auscultation: lungs clear to auscultation bilaterally Cardiovascular: RRR, no murmur, no edema Rate/Rhythm: regular rate and regular rhythm Heart Sounds: no murmur Gastrointestinal (Abdomen): normal bowel sounds, soft, nontender, no hepatosplenomegaly Inspection/Auscultation: abdomen normal to inspection, normal bowel sounds, + abdominal surgical incision (covered with dry dressings), + abdominal surgical drain present (serosanguineous) and + hypoactive bowel sounds; abdomen not distended Percussion/Palpation: abdomen soft; abdomen nontender, no guarding, abdomen not rigid and no hepatosplenomegaly Musculoskeletal: no cyanosis or clubbing, extremities motor strength 5/5 Extremities: extremities normal to inspection; no cyanosis Gait: normal gait Skin: no rashes, warm and dry no jaundice Neurologic: moves all extremities and awake; no focal motor deficits and not confused Psychiatric: A+Ox3, euthymic affect Orientation: alert and oriented x 3 Genitourinary: no CVA tenderness Results & Data Results & Data ([facility]) Vital Signs (Past 12 Hours) Vital Signs Temp Pulse Resp BP Pulse Ox 02/07/22 11:00 36.6 C 72 14 127/77 96 02/07/22 07:58 36.5 C 59 L 17 121/76 95 02/07/22 03:11 36.8 C 65 18 131/82 96 PG Care Time/CCT Total # of Minutes Spent Total Time Spent: 25 Total Time Spent with Patient: Total time spent is greater than 50% in coordination of care (as documented) at patient's floor/unit and/or counseling patient: Coding Level of Care Code 02822 Subseq Hosp Care Lvl 2 Diagnoses Sepsis A41.9 Bacteremia R78.81 Elevated troponin R77.8 Essential hypertension I10 Pancreatic pseudocyst K86.3
[2022-02-07] MEDS ORDERED: VANCOMYCIN CONSULT ACTIVE PRN (15:08)
[2022-02-07] MEDS ORDERED: VANCOMYCIN HCL 2,000 MG in SODIUM CHLORIDE 0.9% 500 ML IV ONE (15:15)
--- NOTE | 2022-02-07 15:25 | Pharmacy Report ---
Pharmacy Vanc AUC Short Note - Date of Service February 07, 2022 - Assessment & Plan Assessment 71 year old M previously receiving vancomycin and Zosyn, but vancomycin discontinued on 02/05, now ordered vancomycin monotherapy for treatment of gram- positive bacteremia (E. faecium) to be completed as an outpatient (discharge planned for tomorrow). Pertinent microbiologic data includes: 1 of 2 blood cultures (02/01/22) growing Enterococcus faecium (penicillin resistant, ampicillin sensitive), repeat blood cultures from 02/03 show no growth at 48 hours. POD #2 laparoscopic cholecystectomy. Pharmacy notified that patient would likely be discharged tomorrow on vancomycin monotherapy. Plan Vancomycin * Estimating very minimal vancomycin concentration given last dose on 02/05 at ~0200, will give loading dose of 2 g now * AUC/LUIS ANTONIO is the preferred PK/PD target for vancomycin * AUC guided dosing is effective and associated with decreased risk of nephrotoxicity compared to traditional trough targets * Vancomycin 1250 mg IV q12h is predicted to achieve target AUC/LUIS ANTONIO of 400-600 mg/L.hr and may be associated with a 12 % risk of nephrotoxicity * Patient to be discharged tomorrow, suggest twice weekly vanco trough level (30 minutes prior to dose) and SCr to assess renal function * Next vancomycin trough should be obtained prior to 4th maintenance dose on 02/09/22 currently scheduled for 1200 Pharmacy will continue to follow and will adjust dose/frequency as necessary. Thank you.
[2022-02-07] MEDS: DAPTOmycin 475 MG in SYRINGE 0 ML IV SCH (15:55)
[2022-02-08] MEDS ORDERED: VANCOMYCIN HCL 1,250 MG in SODIUM CHLORIDE 0.9% 250 ML IV SCH
--- NOTE | 2022-02-08 06:15 | Surgery Progress Note ---
Date of Service February 08, 2022 Assessment & Plan (1) Cholecystitis: Plan: Status post subtotal cholecystectomy on 02/06/2022 (postop day #2) Continue diet as tolerated Continue analgesics Patient is currently receiving daptomycin as he had a blood culture this admi ssion positive for Enterococcus Maintain ARNOLDO drain; patient will be discharged home with this and will be removed in the office Admission and Anticipated Discharge Date Admission Date: February 01, 2022 Supervising Physician Co-Signing Physician Notes I personally saw and evaluated the patient with Yuri Thomas PA-C and agree with the assessment and plan. 71-year-old male status post laparoscopic cholecystectomy He is doing very well postoperatively Continue ARNOLDO drain is he will be discharged with this He is stable for discharge today from a surgical standpoint once his IV antibiotics as an outpatient are set up Surgery will sign off at this time please call with any questions or concerns He will follow up with Dr. Mcadams this coming week for drain removal Subjective Patient is sitting in bedside chair at the time of my exam. He offers no complaints. He notes that he is passing flatus and had a small bowel movement. He is tolerating solid food and denies any nausea vomiting. He denies any fevers, shakes, chills. He denies any shortness of breath. He is voiding without difficulty. He notes he has ambulated in the hallway since his surgery Physical Exam Gastrointestinal (Abdomen): Abdomen is soft and nondistended. Bowel sounds are present. He has appropriate tenderness near his surgical incisions. His incisions are covered with dressings. Results & Data ([facility]) Vital Signs (Past 12 Hours) Vital Signs Temp Pulse Pulse Resp BP BP Pulse Ox 02/08/22 03:16 36.8 C 59 L 17 145/86 H 95 02/07/22 22:53 59 L 02/07/22 22:34 36.9 C 57 L 16 105/62 93 02/07/22 19:30 37.2 C 59 L 17 128/80 95 PG Care Time/CCT Total # of Minutes Spent Total Time Spent with Patient: Total time spent is greater than 50% in coordination of care (as documented) at patient's floor/unit and/or counseling patient: Coding Level of Care Code None Diagnoses Cholecystitis K81.9
[2022-02-08] MEDS: HEPARIN SOD 5,000 UNIT/0.5 ML VIAL SQ SCH (08:03)
[2022-02-08] MEDS: BROMOCRIPTINE MESYLATE 2.5 MG TAB PO SCH (08:05)
[2022-02-08] MEDS: lisinopril 5 MG TAB PO SCH (08:06)
[2022-02-08] MEDS ORDERED: Nursing to Pharmacy Communication SCH (12:00)
[2022-02-08] MEDS: DAPTOmycin 475 MG in SYRINGE 0 ML IV SCH (12:22)
--- NOTE | 2022-02-08 18:57 | Discharge Summary ---
Date of Service February 08, 2022 Admission HPI Per Admitting Provider Burton Cárdenas is a 71 year old male with significant history of gallstone pancreatitis, cholangitis, cholecystitis s/p ERCP with biliary stent x2, history of Covid who presented to the ER with fever, chills. He reportedly also had recurrent right upper quadrant abdominal pain after eating an [employer] fish sandwich the day before admission. No abdominal pain today, nausea, vomiting, change in bowel movements, melena or bright red blood in stool on the date of admission the patient complained of having chills and fever, initial work-up included imaging studies was supportive of acute cholecystitis Principal Diagnosis Acute cholecystitis status post partial cholecystectomy Discharge Exam The patient is alert and oriented. Mood and affect appeared normal. He answered all questions appropriately. HEENT: Pupils are equal and reactive to light and accommodation. Extraocular movements are intact. The sclerae are anicteric. Neuro: Cranial nerves intact Lungs: Normal respiratory effort Cardiac: Regular rhythm. Pulses: Right wrist with hemo band in place. Constitutional WD/WN, vitals as above + obese; no acute distress and not ill appearing Eyes PERRL, conjunctivae normal, anicteric sclerae + anicteric sclerae and EOM intact bilaterally; normal pupil size ENMT Mouth: + poor dentition and + small oral opening; no TMJ abnormality Mallampati Class: III Neck normal visual inspection and trachea midline; neck extension not limited Respiratory normal respiratory effort, lungs clear to auscultation normal respiratory effort; no respiratory distress, no labored breathing and no retractions Auscultation: lungs clear to auscultation bilaterally Cardiovascular RRR, no murmur, no edema Rate/Rhythm: regular rate and regular rhythm Heart Sounds: no murmur Gastrointestinal (Abdomen) normal bowel sounds, soft, nontender, no hepatosplenomegaly Inspection/Auscultation: abdomen normal to inspection, normal bowel sounds, + abdominal surgical incision (covered with dry dressings) and + abdominal surgical drain present (serosanguineous); abdomen not distended Percussion/Palpation: abdomen soft; abdomen nontender, no guarding, abdomen not rigid and no hepatosplenomegaly Musculoskeletal no cyanosis or clubbing, extremities motor strength 5/5 Extremities: extremities normal to inspection; no cyanosis Gait: normal gait Skin no rashes, warm and dry no jaundice Neurologic moves all extremities and awake; no focal motor deficits and not confused Psychiatric A+Ox3, euthymic affect Orientation: alert and oriented x 3 Genitourinary no CVA tenderness Discharge Data Allergies Allergy/AdvReac Type Severity Reaction Status Date / Time No Known Allergies Allergy Unverified 02/01/22 09:17 Consultations 02/01/22 08:37 ED Decision to Admit Stat 02/01/22 09:31 Consult Gastroenterology Routine 02/01/22 13:27 Consult General Surgery Routine 02/01/22 15:27 Consult Cardiology Routine 02/03/22 13:28 Consult Infectious Diseases Routine Procedures Performed Operation Date: 02/02/22 12:00 <No data on this case meets the specified criteria> Operation Date: 02/03/22 11:00 Actual Procedures s Cineradiography w/Routine Exam - Elliot Lima MD p Cath, Left with Cors and Vent - Elliot Lima MD Operation Date: 02/05/22 09:10 Actual Procedures p Laparoscopic Subtotal Cholecystectomy - Chucky Mcadams MD Ordered Studies 02/01/22 07:47 US gallbladder Stat 02/03/22 06:55 CL Cath Imgs for PACS use only Routine Hospital Course (1) Sepsis: #Sepsis secondary to acute cholecystitis Status post subtotal cholecystectomy Patient is currently have a HEBERT drain Blood culture positive for Enterococcus Follow-up culture negative Patient has a PICC line As per ID recommendation patient was discharged on daptomycin, follow-up with general surgery in 1 week to remove the HEBERT drain (2) Bacteremia: As mentioned above (3) Elevated troponin: Low suspicion of ACS however troponin initially performed due to diaphoresis out of proportion to other findings on admission Suspect demand ischemia in setting of cholecystitis with probably underlying mod-severe CAD LDL 31 - will continue on atorvastatin 40 mg PO pending cardiac cath Started on metoprolol tartrate 25mg PO BID heparin rip has been discontinued. ASA 81mg PO daily (4) Essential hypertension: Hold lisinopril Continue metoprolol as above (5) Pancreatic pseudocyst: Appears to be stable based on comparison of reports from prior imaging. VTE Prophylaxis - heparin scd knee Disposition - Discharge on 02/08 as Son will be available for support on Thursday. Total Time Total Time Spent Total Time Spent (In Minutes): 45 Discharge Plan Discharge Items Patient Disposition: Home - Home Health Services Reason For Visit: SEPSIS,INFECTED PSEUDOCYST VS PANCREATITIS Discharge Diagnosis: s/p laparoscopic subtotal cholecystectomy Condition on Discharge: Good Health Concerns: HEBERT drain care Goals: Remove the HEBERT drain Lifting: No more than 5 pounds Bathing: Keep incision dry Sexual Activity: When tolerated Exercise/Sports: Gradually increase as tolerated Driving/Machine Use: No limitations Weightbearing: Full weightbearing Non-emergency contact: Primary Care Provider Call non-emergency contact if: you have any medication questions Follow-up/Referrals: Chucky Mcadams MD [Physician] - (Patient needs follow-up 02/12/2022 for drain evaluation with DR. Mcadams) Nate Sheth MD [Primary Care Provider] - Diet: Low Fat Addtl Attending Provider Instructions: Please follow the instruction of HEBERT drain care, follow-up with your surgeon as instructed, follow with daily antibiotic infusion as instructed, follow-up with the weekly lab as instructed Addtl [place] [place] [employer]er Provider Instructions: Post-Surgical ~Discharge Instructions Activity Recommendations: - lifting limitation: (20 pounds for 4 weeks), - exercise/sex/sports limit: (nonstrenuous for 4 weeks), - driving or machine use limit: (none for 1 week or until pain free and not taking pain medication), - Shower/bathe limit: (may shower beginning Thursday) Diet: - Recommend low fat diet SPECIAL CARE INSTRUCTIONS: - May shower on Thursday. Sponge bath around incisions and hebert drain and wash hair. on Thursday you can remove outer dressings and shower. Let water run over area and pat dry. - Leave steri strips on for one week and then remove. They may fall off on their own that is okay. - Surgical drain will be removed in surgery office. Record output amount and color every day and bring record with you to your postop visit. - Call the surgeon's office with any questions or concerns - - (ex. temperature higher than 101 degrees F, excessive bleeding or pain). MEDICATIONS: - Resume previous medications unless instructed otherwise by your surgeon. - May take extra strength Tylenol as needed for mild to moderate pain -650 mg Tylenol every 6 hours as needed. - Percocet 1 every 6 hours, as needed for moderate to severe pain - Recommend daily stool softener (Colace) to prevent constipation or straining while taking narcotic pain medication. FOLLOW UP VISIT: - If not already scheduled, please call the office to schedule a one week follow-up appointment. Office number Pending Studies at Discharge: Yes (surgical pathology) Stand-Alone Forms: My [facility], Smoking Cessation Medications and DC Order Prescriptions: Continued lisinopril 5 mg Tablet 5 mg PO QAM RF: 0 bromocriptine 5 mg Capsule 5 mg PO BID RF: 0 Discharge Orders: Discharge Order (Routine); Ordered 02/08/22 Ordered By: Efren Calvert/Other Patient Handouts: Pola Mason Drain Tube Dc Admission Data Admit Date/Time: 02/01/22 09:38 Attending Provider: Efren Coburn Admit Provider: Jeremiah Cartwright Primary Care Provider: Nate Sheth Other Providers: Jeremiah Cartwright ; Ananda Brown ; Apolonia Varma ; Elliot iLma ; Landon Santos ; Kanchan Villarreal ; Pravin Mendoza I. ; Ricky Cleaning II ; Isabel Sanches ; Vincent Roman ; Lalit Villar ; [facility] Other Interventions: Discharge Summary Assessment (RN) Last Done: 02/08/22 14:47 Coding Level of Care Code D/C DAY MANAGEMENT >30 MINS Diagnoses Sepsis A41.9 Bacteremia R78.81 Elevated troponin R77.8 Essential hypertension I10 Pancreatic pseudocyst K86.3
== END 2022-02-08 15:33 | disposition home health service (06) | DRG 854 ==
LOC: ED 05:24 → 2N 09:38 → SUATTDRO 09:38 → 2N 10:30 → 2S 02-03 14:55